=== PATIENT | female | born 1945 | race Caucasian/White ===

== ENCOUNTER 2022-05-23 22:48 | Emergency (ER) | payer MEDICARE ==
[~2022-05-23] VITALS: Ht 152.4 cm; Wt 114.0 kg
--- NOTE | 2022-05-23 23:00 | ED General ---
General Stated Complaint: CONSTIPATION History of Present Illness Date Seen by Provider: May 23, 2022 Time Seen by Provider: 23:00 Initial Comments 77-year-old female with PMH of lymphedema/A. fib/DM2, is here with complaints of constipation for the past 1 week. Patient had a large bowel movement today morning but patient stating that it is hard to stool. Patient takes hydrocodone every day for pain. Denies abdominal pain, diarrhea, nausea and vomiting, chest pain, fever and chills. Patient is able to eat all her meals without any difficulty. Allergies and Home Medications Allergies Coded Allergies: hydrocodone (Unverified Allergy, Unknown, 05/23/22) Influenza Virus Vaccines (Unverified Adverse Reaction, Unknown, 05/23/22) Penicillins (Unverified Adverse Reaction, Unknown, 05/23/22) Sulfa (Sulfonamide Antibiotics) (Unverified Adverse Reaction, Unknown, 05/23/22) cefdinir (Unverified Adverse Reaction, Unknown, 05/23/22) codeine (Unverified Adverse Reaction, Unknown, 05/23/22) doxycycline (Unverified Adverse Reaction, Unknown, 05/23/22) erythromycin base (Unverified Adverse Reaction, Unknown, 05/23/22) levofloxacin (Unverified Adverse Reaction, Unknown, 05/23/22) tramadol (Unverified Adverse Reaction, Unknown, 05/23/22) Uncoded Allergies: HMG-COA Reductase Inhibitors (Adverse Reaction, Unknown, 05/24/22) Listed from [facility] of [facility] Patient Home Medication List Home Medication List Reviewed: Yes Review of Systems Review of Systems Constitutional: no symptoms reported EENTM: no symptoms reported Respiratory: no symptoms reported Cardiovascular: no symptoms reported Gastrointestinal: constipation Genitourinary: no symptoms reported Musculoskeletal: no symptoms reported Skin: no symptoms reported Psychiatric/Neurological: No Symptoms Reported Hematologic/Lymphatic: No Symptoms Reported Immunological/Allergic: no symptoms reported Physical Exam Vital Signs Capillary Refill : Height, Weight, BMI Height: '" Weight: lbs. oz. kg; BMI Method: General Appearance: No Apparent Distress, WD/WN HEENT: PERRL/EOMI Neck: Full Range of Motion Respiratory: Lungs Clear Cardiovascular: Regular Rate, Rhythm Gastrointestinal: Normal Bowel Sounds, No Organomegaly, No Pulsatile Mass, Non Tender, Soft Neurologic/Psychiatric: Alert, Oriented x3 Progress/Results/Core Measures Suspected Sepsis SIRS Temperature: Pulse: Respiratory Rate: Blood Pressure / Mean: Results/Orders My Orders Orders - HERMAN MEYER MD Senna S Tablet (Senokot S Tablet) (05/24/22 00:00) Docusate Sodium Capsule (Colace Capsule) (05/24/22 00:00) Lactulose Syrup (Pour Bottle) (Cephulac (05/24/22 00:00) Na Phos/Na Biphos Enema (Fleet Enema Nicholas (05/24/22 00:00) Vital Signs/I&O Capillary Refill : Progress Note : Progress Note 1. CONSTIPATION: - Pt has soft abdomen with active bowel sounds, stable vitals, and absence of abdominal pain in the ER. High unlikelihood for obstruction - Pt had another large bowel movement while in ER - Fleet enema dispensed to pt from ER - Prescriptions for colace and senna - Advised to stop hydrocodone or any narcotics on a daily basis and replace with Tylenol instead. - Follow up with PCP within 3 to 7 days - Advised adequate water intake -The patient was seen in the ED, and treated appropriately to presentation at a specific point in time. Patient is informed that there is a possibility that disease and illness can evolve and change in acuity rapidly or slowly after patient is discharged from the ER. Precautionary advice given to the patient for immediate return to ER if symptoms worsen or do not resolve, and to seek emergency care sooner rather than later. Pt also advised on the importance of PCP follow up and compliance with management and follow up plan with PCP and/or specialist, as this is part of the management plan. Pt verbally expressed understanding. Departure Impression Primary Impression: Constipation Qualified Codes: K59.03 - Drug induced constipation Disposition: HOME, SELF-CARE Condition: Improved Departure-Patient Inst. Referrals: LEDA LAMBERT APRN (PCP/Family) Primary Care Physician Patient Instructions: Constipation in Adults Add. Discharge Instructions: - Fleet enema dispensed to pt from ER - Prescriptions for colace and senna - Advised to stop hydrocodone or any narcotics on a daily basis and replace with Tylenol instead. - Follow up with PCP within 3 to 7 days - Advised adequate water intake Scripts Sennosides/Docusate Sodium (Colace 2-in-1 Tablet) 8.6 Mg-50 Mg Tablet 1 EACH PO BID for 5 Days, #10 TAB Prov: HERMAN MEYER MD 05/24/22 HERMAN MEYER MD May 23, 2022 23:00
[2022-05-24] MEDS ORDERED: FLEET ENEMA ADULT 1 EA BTL PR ONE
[2022-05-24] MEDS ORDERED: LACTULOSE 10 GM/15 ML 30 ML POUR BOTTLE FOR ENEMA PR ONE
[2022-05-24] MEDS ORDERED: SENNA W/DOCUSATE (SENOKOT S) TABLET PO ONE
[2022-05-24] MEDS ORDERED: DOCUSATE SODIUM 100 MG (COLACE) CAP PO ONE
[2022-05-24] MEDS ORDERED: SENN-181 PO (00:25)
[2022-05-24 00:40] VITALS: BP 149/71
== END 2022-05-24 00:40 | disposition home or self-care (01) ==
LOC: EDUNIT# 22:48 → ER FS 22:50
DX: K59.00 Constipation, unspecified (principal); Z28.310 Unvaccinated for COVID-19
CPT/HCPCS: 99281

== ENCOUNTER → 2022-12-03 | Outpatient (CLI) | payer MEDICARE ==
[~2022-12-03] MED LIST: SENN-181 PO
--- NOTE | 2022-12-03 17:38 | Diagnostic Imaging Report ---
EXAMINATION: Right foot 3 views HISTORY: Foot pain COMPARISON: None available. FINDINGS: There are extensive vascular calcifications throughout the right foot. 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 There is diffuse soft tissue swelling. There is moderate mid foot osteoarthritis. No acute fracture is seen. IMPRESSION: 1. Diffuse soft tissue swelling and vascular calcifications. No acute fracture is seen. Dictated by: Dictated on workstation # [id number]
--- NOTE | 2022-12-03 17:39 | Diagnostic Imaging Report ---
EXAMINATION: Abdomen 1 view HISTORY: Abdominal pain COMPARISON: None available. FINDINGS: No dilated bowel or free air. Study quality is diminished due to positioning and body habitus. IMPRESSION: 1. Normal bowel gas pattern. Dictated by: Dictated on workstation # [id number]
== END ==
LOC: RAD FS 14:50
PROVIDERS: ATTEND Nurse Practitioner Family
DX: R10.84 Generalized abdominal pain (principal); M79.674 Pain in right toe(s); M79.89 Other specified soft tissue disorders
CPT/HCPCS: 73630; 74018

== ENCOUNTER 2023-02-24 10:29 | Inpatient (IN) | payer MEDICARE ==
[~2023-02-24] VITALS: Ht 152.4 cm; Wt 126.8 kg
[2023-02-24] MEDS ORDERED: NS IV 1000 ML 1,000 ML IV STA ×3 (10:49→12:49)
[2023-02-24 10:55] LABS: BILIRUBIN,URINE NEGATIVE (NEGATIVE); CLARITY,URINE CLEAR; GLUCOSE, URINE (UA) TRACE (NEGATIVE); KETONES,URINE NEGATIVE (NEGATIVE); LEUKOCYTE ESTERASE ,URINE NEGATIVE (NEGATIVE); NITRITE,URINE NEGATIVE (NEGATIVE); PROTEIN,URINE 2+ (NEGATIVE)
[2023-02-24 10:56] LABS: BASOPHILS # (AUTO) 0.1 10^3/uL (0.0-0.1); BASOPHILS % (AUTO) 0 % (0-10); EOSINOPHILS # (AUTO) 0.2 10^3/uL (0.0-0.3); EOSINOPHILS % (AUTO) 1 % (0-10); HEMATOCRIT 41 % (35-52); HEMOGLOBIN 12.6 g/dL (11.5-16.0); LYMPHOCYTES # (AUTO) 0.7 10^3/uL (1.0-4.0); LYMPHOCYTES % (AUTO) 4 % (12-44); MEAN CORPUSCULAR HEMOGLOBIN 29 pg (25-34); MEAN CORPUSCULAR HGB CONC 31 g/dL (32-36); MEAN CORPUSCULAR VOLUME 92 fL (80-99); MEAN PLATELET VOLUME 9.6 fL (9.0-12.2); MONOCYTES # (AUTO) 0.8 10^3/uL (0.0-1.0); MONOCYTES % (AUTO) 4 % (0-12); NEUTROPHILS # (AUTO) 17.6 10^3/uL (1.8-7.8); NEUTROPHILS % (AUTO) 91 % (42-75); PLATELET COUNT 325 10^3/uL (130-400); WHITE BLOOD COUNT 19.5 10^3/uL (4.3-11.0)
[2023-02-24] MEDS ORDERED: ACETAMINOPHEN 500 MG TAB (TYLENOL) PO STA (11:03)
[2023-02-24 11:12] LABS: COLOR,URINE DARK YELLOW
[2023-02-24 11:13] LABS: BACTERIA,URINE NEGATIVE /HPF; HYALINE CASTS, URINE RARE /LPF; WBC,URINE RARE /HPF
--- NOTE | 2023-02-24 11:20 | ED General ---
General Chief Complaint: Abdominal/GI Problems Stated Complaint: ABD/LEG PN; CELLULITIS Nursing Triage Note: PT TO ROOM FS05 [facility]IA [facility] FROM [facility] WITH C/O LOWER ABD PAIN AND BILAT LEG PAIN. Source of Information: Patient, EMS, Shelter Records, Old Records Exam Limitations: Other (altered mental status and slow to respond to questions) History of Present Illness Date Seen by Provider: Feb 24, 2023 Time Seen by Provider: 10:30 Initial Comments 78-year-old female presenting by EMS from [facility] with complaints of low abdominal pain and low oxygen. Per the [facility] her oxygen was 50%. EMS reports that on arrival they had her on 1 L/min and her oxygen saturation was 98%. She is vague in answering questions and complaints of pain to the suprapubic area but also in her legs. She is sitting on the cot with her eyes closed and is slow to answer questions and respond. Her temperature was 100 F on arrival to the ED. She is also in atrial fibrillation which is chronic for her. EMS reports that patient recently was on an antibiotic for UTI. She has history of chronic recurrent cellulitis in bilateral lower extremities. Unknown how long her symptoms or complaints have been going on for her this morning as the patient is not able to answer and DC did not call report. Associated Systoms: No Chest Pain, No Cough, No Diaphoresis; Fever/Chills, Malaise; No Nausea/Vomiting; Shortness of Air, Weakness Allergies and Home Medications Allergies Coded Allergies: hydrocodone (Unverified Allergy, Unknown, 05/23/22) Influenza Virus Vaccines (Unverified Adverse Reaction, Unknown, 05/23/22) Penicillins (Unverified Adverse Reaction, Unknown, 05/23/22) Sulfa (Sulfonamide Antibiotics) (Unverified Adverse Reaction, Unknown, 05/23/22) cefdinir (Unverified Adverse Reaction, Unknown, 05/23/22) codeine (Unverified Adverse Reaction, Unknown, 05/23/22) doxycycline (Unverified Adverse Reaction, Unknown, 05/23/22) erythromycin base (Unverified Adverse Reaction, Unknown, 05/23/22) levofloxacin (Unverified Adverse Reaction, Unknown, 05/23/22) tramadol (Unverified Adverse Reaction, Unknown, 05/23/22) Uncoded Allergies: HMG-COA Reductase Inhibitors (Adverse Reaction, Unknown, 05/24/22) Listed from Assisted Living records of [facility] Patient Home Medication List Home Medication List Reviewed: Yes Sennosides/Docusate Sodium (Colace 2-in-1 Tablet) 8.6 Mg-50 Mg Tablet, 1 EACH PO BID Prescribed by: HERMAN MEYER MD on 05/24/22 0025 Review of Systems Review of Systems Constitutional: see HPI, chills, fever EENTM: no symptoms reported Respiratory: short of breath Cardiovascular: edema, palpitations Gastrointestinal: see HPI Genitourinary: frequency Musculoskeletal: see HPI Skin: change in color (erythema to bilateral lower extremities) Psychiatric/Neurological: See HPI Past Ffmisbb-Efjdpt-Rjbfdu Hx Patient Social History Tobacco Use?: No Smoking Status: Never a Smoker Smokeless Tobacco Frequency: Never a User Use of E-Cig and/or Vaping dev: No Use of E-Cig and/or Vaping Castillo: Never a User Substance use?: No Alcohol Use?: No Pt feels they are or have been: No Immunizations Up To Date First/Initial COVID19 Vaccinat: Unvaccinated Past Medical History Surgery/Hospitalization HX: Lymphedema bilat LE, cellulitis bilat LE, DM Type II, Diabetic foot ulcer, Morbid Obesity BMI >50, Atrial Fibrillation, Benign Paroxysmal Vertigo, Essential HTN, Hyperlipedemia, Lumbar and Cervical radiculopathy, Fatty Liver, Chronic pain, Hysterectomy, Tonsillectomy, Cervical neck fusion, Stent for left arm blood circulation, General weakness/debility Physical Exam Vital Signs Vital Signs - First Documented 02/24/23 10:30 Temp 37.8 Pulse 122 Resp 20 B/P (MAP) 143/90 (107) O2 Delivery Room Air Capillary Refill : Less Than 3 Seconds Height, Weight, BMI Height: '" Weight: lbs. oz. kg; 48.00 BMI Method: General Appearance: Mild Distress, Obese HEENT: No Moist Mucous Membranes (slightly dry mucus membranes) Neck: Full Range of Motion, Normal Inspection, Non Tender, Supple Respiratory: Chest Non Tender, No Accessory Muscle Use, No Respiratory Distress, Decreased Breath Sounds Cardiovascular: Normal Peripheral Pulses, Irregularly Irregular, Tachycardia Gastrointestinal: Normal Bowel Sounds, No Pulsatile Mass, Non Tender, Soft Back: No CVA Tenderness Extremity: Normal Capillary Refill, Pedal Edema (Bilateral lower extremity edema 2 + pitting edema bilateral) Neurologic/Psychiatric: Alert, Disoriented (oriented to self only) Skin: Warm/Dry Focused Exam Sepsis Stage: Sepsis Possible Source: Skin/Soft Tissue Lactate Level 02/24/23 10:36: Lactic Acid Level 2.54*H 02/24/23 12:55: Lactic Acid Level 2.77*H Time of Focused Exam: 12:40 Respiratory: Chest Non Tender, Lungs Clear, No Accessory Muscle Use, No Respiratory Distress, Decreased Breath Sounds Cardiovascular: Normal Peripheral Pulses, Irregularly Irregular, Tachycardia Capillary Refill: Less Than 3 Seconds Skin: other (erythema to lower abdominal wall and bilateral lower extremities) Lactic Acid Level Laboratory Tests Test 02/24/23 10:36 02/24/23 12:55 Lactic Acid Level 2.54 MMOL/L (0.50-2.00) *H 2.77 MMOL/L (0.50-2.00) *H Within 3hrs of presentation: Admin fluids, Admin ABX, Blood cultures prior to ABX's, Focus exam, Lactate level Progress/Results/Core Measures Suspected Sepsis SIRS Temperature: Pulse: 122 Respiratory Rate: 20 Laboratory Tests 02/24/23 10:36: White Blood Count 19.5H Blood Pressure 143 /90 Mean: 107 02/24/23 10:36: Lactic Acid Level 2.54*H 02/24/23 12:55: Lactic Acid Level 2.77*H Laboratory Tests 02/24/23 10:36: Creatinine 0.90, Platelet Count 325, Total Bilirubin 1.3H Results/Orders Lab Results Laboratory Tests Test 02/24/23 10:36 02/24/23 10:46 02/24/23 12:55 Range/Units White Blood Count 19.5 H 4.3-11.0 10^3/uL Red Blood Count 4.42 3.80-5.11 10^6/uL Hemoglobin 12.6 11.5-16.0 g/dL Hematocrit 41 35-52 % Mean Corpuscular Volume 92 80-99 fL Mean Corpuscular Hemoglobin 29 25-34 pg Mean Corpuscular Hemoglobin Concent 31 L 32-36 g/dL Red Cell Distribution Width 17.7 H 10.0-14.5 % Platelet Count 325 130-400 10^3/uL Mean Platelet Volume 9.6 9.0-12.2 fL Immature Granulocyte % (Auto) 1 % Neutrophils (%) (Auto) 91 H 42-75 % Lymphocytes (%) (Auto) 4 L 12-44 % Monocytes (%) (Auto) 4 0-12 % Eosinophils (%) (Auto) 1 0-10 % Basophils (%) (Auto) 0 0-10 % Neutrophils # (Auto) 17.6 H 1.8-7.8 10^3/uL Lymphocytes # (Auto) 0.7 L 1.0-4.0 10^3/uL Monocytes # (Auto) 0.8 0.0-1.0 10^3/uL Eosinophils # (Auto) 0.2 0.0-0.3 10^3/uL Basophils # (Auto) 0.1 0.0-0.1 10^3/uL Immature Granulocyte # (Auto) 0.1 0.0-0.1 10^3/uL Neutrophils % (Manual) 79 % Lymphocytes % (Manual) 3 % Monocytes % (Manual) 4 % Eosinophils % (Manual) 0 % Basophils % (Manual) 1 % Band Neutrophils 13 % Platelet Estimate NORMAL Stomatocytes SLIGHT Sodium Level 140 135-145 MMOL/L Potassium Level 3.9 3.6-5.0 MMOL/L Chloride Level 102 98-107 MMOL/L Carbon Dioxide Level 27 21-32 MMOL/L Anion Gap 11 5-14 MMOL/L Blood Urea Nitrogen 27 H 7-18 MG/DL Creatinine 0.90 0.60-1.30 MG/DL Estimat Glomerular Filtration Rate 65 BUN/Creatinine Ratio 30 Glucose Level 114 H 70-105 MG/DL Lactic Acid Level 2.54 *H 2.77 *H 0.50-2.00 MMOL/L Calcium Level 10.2 H 8.5-10.1 MG/DL Corrected Calcium 10.3 H 8.5-10.1 MG/DL Total Bilirubin 1.3 H 0.1-1.0 MG/DL Aspartate Amino Transf (AST/SGOT) 20 5-34 U/L Alanine Aminotransferase (ALT/SGPT) 5 0-55 U/L Alkaline Phosphatase 159 H 40-136 U/L C-Reactive Protein 1.91 H <0.50 MG/DL Total Protein 8.8 H 6.4-8.2 GM/DL Albumin 3.9 3.2-4.5 GM/DL Urine Color DARK YELLOW Urine Clarity CLEAR Urine pH 6.0 5-9 Urine Specific [place] 1.025 H 1.016-1.022 Urine Protein 2+ H NEGATIVE Urine Glucose (UA) TRACE H NEGATIVE Urine Ketones NEGATIVE NEGATIVE Urine Nitrite NEGATIVE NEGATIVE Urine Bilirubin NEGATIVE NEGATIVE Urine Urobilinogen 2.0 < = 1.0 MG/DL Urine Leukocyte Esterase NEGATIVE NEGATIVE Urine RBC (Auto) TRACE-I H NEGATIVE Urine RBC 2-5 H /HPF Urine WBC RARE /HPF Urine Squamous Epithelial Cells NONE /HPF Urine Crystals NONE /LPF Urine Bacteria NEGATIVE /HPF Urine Casts PRESENT /LPF Urine Hyaline Casts RARE /LPF Urine Mucus SMALL H /LPF Urine Culture Indicated NO My Orders Orders - SALLIE ROSARIO MD Cbc With Automated Diff (02/24/23 10:47) Comprehensive Metabolic Panel (02/24/23 10:47) Blood Culture (02/24/23 10:47) Ua Culture If Indicated (02/24/23 10:47) Chest 1 View Ap/Pa Only (02/24/23 10:47) Ed Iv/Invasive Line Start (02/24/23 10:47) Crp Fs (02/24/23 10:47) Lactic Acid Analyzer (02/24/23 10:47) Straight Cath For Spec.-Adult (02/24/23 10:47) Ct Abdomen/Pelvis W (02/24/23 10:47) Ct Head Wo (02/24/23 10:47) Ns Iv 1000 Ml (Sodium Chloride 0.9%) (02/24/23 10:49) Ekg Tracing (02/24/23 10:49) Monitor-Rhythm Ecg Trace Only (02/24/23 10:49) Ns Iv 1000 Ml (Sodium Chloride 0.9%) (02/24/23 11:03) Acetaminophen Tablet (Tylenol Tablet) (02/24/23 11:03) Manual Differential (02/24/23 10:36) Iohexol Injection (Omnipaque 350 Mg/Ml 1 (02/24/23 11:30) Received Contrast (Hold Metformin- Contr (02/24/23 11:30) Ns (Ivpb) (Sodium Chloride 0.9% Ivpb Bag (02/24/23 11:30) Code/Resuscitation (02/24/23 11:54) Meropenem (Merrem 1000 Mg) (02/24/23 12:13) Ketorolac Injection (Toradol Injection) (02/24/23 12:13) Meropenem (Merrem 500 Mg) (02/24/23 12:19) Ns (Ivpb) (Sodium Chloride 0.9% Ivpb Bag (02/24/23 12:20) Lorazepam Injection (Ativan Injection) (02/24/23 12:29) Fentanyl Inj (Sublimaze Injection) (02/24/23 12:36) Vancomycin Injection (Vancomycin Injecti (02/24/23 12:48) Ed Admission (Communication) (02/24/23 12:48) Ns Iv 1000 Ml (Sodium Chloride 0.9%) (02/24/23 12:49) Fentanyl Inj (Sublimaze Injection) (02/24/23 13:31) Medications Given in ED Current Medications Medications Dose Ordered Sig/Yvette Route Start Time Stop Time Status Last Admin Dose Admin Iohexol 100 ml ONCE ONCE IV 02/24/23 11:30 02/24/23 11:32 DC 02/24/23 12:00 80 ML Meropenem 500 mg STK-MED ONCE IV 02/24/23 12:19 02/24/23 12:21 DC 02/24/23 12:23 1,000 MG Sodium Chloride 100 ml ONCE ONCE IV 02/24/23 11:30 02/24/23 11:32 DC 02/24/23 12:00 100 ML Sodium Chloride 100 ml @ ud STK-MED ONCE .ROUTE 02/24/23 12:20 02/24/23 12:23 DC 02/24/23 12:24 200 MLS/HR Vital Signs/I&O 02/24/23 02/24/23 10:30 11:10 Temp 37.8 38.4 Pulse 122 Resp 20 B/P (MAP) 143/90 (107) O2 Delivery Room Air Capillary Refill : Less Than 3 Seconds Blood Pressure Mean: 107 Progress Note #1: Progress Note Potential diagnosis of cellulitis, sepsis, delirium, urinary tract infection, pyelonephritis, bowel obstruction, constipation, pneumonia, pancreatitis, diverticulitis, colitis. Obtain basic labs with complete blood count, comprehensive metabolic profile, blood cultures, lactic acid, urinalysis by straight cath. Obtain CT scan of the head without contrast to look for signs of acute intracranial process to account for her mental status. CT scan of the abdomen and pelvis with IV contrast to look for signs of acute pathology in the abdomen to account for her complaints of pain. Chest x-ray to look for signs of pneumonia or infiltrate. Electrocardiogram with her having atrial fibrillation with heart rate fluctuating from 100 to 115 bpm. Administer normal saline 1 L IV fluid bolus for hydration. Acetaminophen 1 g p.o. for her temperature of 100 F. Progress Note #2: Time: 12:21 Progress Note Patient was crying out for help but is unable to be specific about what she needs help with. She is complaining of general pain. Will administer Toradol 15 mg IV to try and help with pain. Her labs that showed a high white blood cell count of 19.5 thousand with 79% neutrophils 13% bands. Hemoglobin was stable at 12.6. She had elevated lactic acid of 2.54 and had been called back at 1125 by lab. I ordered a dose of cefepime 1 g IV for possible cellulitis and her elevated white count with elevated lactic acid. Her comprehensive metabolic profile did not show any acute significant electrolyte abnormality but she did have mild elevation of her BUN to 27 and her creatinine was okay at 0.9. Total bilirubin was slightly elevated to 1.3. CRP elevated to 1.91. Her urinalysis had elevated specific gravity for some dehydration with 1.025 specific gravity. She had 2+ proteins and 2-5 red blood cells but was negative for bacteria, nitrites, leukocyte esterase. On review of her CT scan of the head they did not see any acute process when read by the radiologist. Her 1 view chest x-ray had shown some pulmonary edema but no definite infiltrate. Her CT scan of the abdomen and pelvis with IV contrast had shown some bibasilar opacities concerning for possible infection. She did not have any signs of obstruction or infection and inflammation of the colon or internal organs. It did look like she had some diffuse stranding in the subcutaneous fat of her lower abdomen for possible cellulitis. We will check with the hospitalist for [facility], Dr. Paz about admission for sepsis with cellulitis and delirium. Progress Note #3: Time: 12:35 Progress Note Patient was continuing to cry out intermittently for help. From review of her medications from [facility] she does take hydrocodone for chronic pain. We will administer fentanyl 25 mcg IV along with Ativan 0.5 mg IV x1 to try and help with her agitation and crying out. Progress Note #4: Time: 12:44 Progress Note Discussed with [facility] hospitalist, Dr. Paz, about the patient and her presentation. With her vital signs stable with blood pressure 124/61 and having atrial fibrillation with heart rate of 100-1 15 with maintaining oxygen saturation in the mid 90s on room air. She does have an elevated white blood cell count for infection with bandemia and a left shift as well as slight elevation of her lactic acid to 2.54. In addition to the dose of cefepime that had been administered will give vancomycin 1 g IV for broader coverage of antibiotics. Admit to [facility] with telemetry and continue with fluids and antibiotics. Progress Note #5: Time: 13:23 Progress Note Lab called to report patient's repeat lactic acid had increased from 2.54 to 2.77. She is getting additional IVF and already had Cefepime 1 gm and now getting Vancomycin 1 gm IV. Continue with IVF after the 2nd Liter bolus infuses. Her blood pressure has remained stable 115-125 systolic. heart rate continues to be atrial fibrillation with heart rate fluctuating from 90 up to 120. confirms the patient is sleepy all the time and not very interactive. She is a little worse right now with what is going on for her. ECG Initial ECG Impression Date: Feb 24, 2023 Initial ECG Impression Time: 10:41 Initial ECG Rate: 100 Initial ECG Rhythm: A Fib/Flutter Initial ECG Comparisson: No Previous ECG Available Comment My personal interpretation and review the electrocardiogram shows atrial fibrillation with rapid ventricular response of 100 bpm. Low QRS voltage in precordial leads. No acute ST elevation. QT interval 342 ms with a QTc interval 399 ms. There is no prior tracing for comparison. Diagnostic Imaging Diagonstic Imaging: Xray Plain Films/CT/US/NM/MRI: chest Reviewed: Reviewed by Me Diagonstic Imaging: CT Plain Films/CT/US/NM/MRI: head Comments [facility] [place] [place] NAME: [facility] REC#: [id number] PT STATUS: REG ER : 1945 PHYSICIAN: SALLIE ROSARIO MD ADMIT DATE: 02/24/23/ER FS Draft Date of Exam:02/24/23 CT HEAD WO INDICATION: Altered mental status TECHNIQUE: Multiple contiguous axial images were obtained through the brain without the use of intravenous contrast. Auto Exposure Controls were utilized during the CT exam to meet ALARA standards for radiation dose reduction. There is no prior CT for comparison. Study was limited by motion and was repeated multiple times. There is diffuse atrophic change. There are chronic ischemic changes in the deep white matter. 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 There is no acute hemorrhage or subdural or epidural collection. Ventricles are normal in size and position. Calvarial windows show no acute bony abnormality. IMPRESSION: Motion limited study. Atrophy and chronic changes in deep white matter. 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 No definite acute abnormality. Dictated on workstation # [id number] Dict: 02/24/23 1200 Trans: 02/24/23 1206 CVB [id number] Interpreted by: BHARATH WILSON MD Electronically signed by: Reviewed: Reviewed by Me Diagonstic Imaging: CT Plain Films/CT/US/NM/MRI: abdomen, pelvis Comments [facility] [place] [place] NAME: PIETRO NORR[facility] REC#: [id number] PT STATUS: REG ER : 1945 PHYSICIAN: SALLIE ROSARIO MD ADMIT DATE: 02/24/23/ER FS Signed Date of Exam:02/24/23 CT ABDOMEN/PELVIS W PROCEDURE: CT abdomen and pelvis with contrast. TECHNIQUE: Multiple contiguous axial images were obtained through the abdomen and pelvis after administration of intravenous contrast. Auto Exposure Controls were utilized during the CT exam to meet ALARA standards for radiation dose reduction. All CT scans use one or more of the following dose optimizing techniques: automated exposure control, MA and/or KvP adjustment based on patient size and exam type or iterative reconstruction. INDICATION: Abdominal pain, frequent UTI. COMPARISON: None. FINDINGS: Included views of the chest demonstrate cardiomegaly, calcified coronary artery disease, calcifications of the aortic and mitral valve. There are bibasilar airspace opacities and small right pleural effusion The liver, spleen, adrenal glands, and pancreas are normal. Gallstone seen within the gallbladder. Scattered diverticuli within the sigmoid colon without evidence of diverticulitis. Calcified aortoiliac atherosclerosis without aneurysm. No free air, loculated fluid collections, or ascites. Small hiatal hernia. No bowel obstruction. There is diffuse subcutaneous fat stranding along the lower abdominal soft tissues. No apparent drainable fluid collections. The osseous structures demonstrate no lytic or sclerotic bone lesions. Severe multilevel degenerative changes of the lumbar spine with moderate multilevel spinal canal stenosis. IMPRESSION: Diffuse fat stranding throughout the subcutaneous tissue of the lower abdomen may represent cellulitis. Other etiologies cannot be excluded based on imaging alone. No apparent drainable fluid collections. Scattered diverticuli within the sigmoid colon without evidence of diverticulitis. Cholelithiasis. Small hiatal hernia. No bowel obstruction. Calcified coronary artery atherosclerosis and calcifications of the aortic and mitral valve. Bibasilar airspace opacities may represent infection or atelectasis. Small right pleural effusion. Dictated by: Dictated on workstation # [id number] Dict: 02/24/23 1201 Trans: 02/24/23 1205 [facility] [id number] Interpreted by: YRN RAMIREZ DO Electronically signed by: YRN RAMIREZ DO 02/24/23 1205 Reviewed: Reviewed by Me Critical Care Note Critical Care Total Time (minutes) 60 minutes Progress I spent at least 60 minutes of critical care time with the patient. Time excludes separately billable procedures. Time was spent obtaining history from patient, [facility] records, , EMS, ordering tests and reviewing results, ordering interventions and reviewing response, discussion with consultants and discussion with the as the patient was disoriented and delirious, documentation in the chart. Patient was at risk of cardiovascular compromise with sepsis and altered mental status delirium. She required 9 immediate and direct intervention and management to help stabilize her condition and arrange for transfer to higher level of care. Departure Communication (Admissions) Time/Spoke to Admitting Phy: 12:44 Discussed with [facility] hospitalist, Dr. Paz, about the patient and her presentation. With her vital signs stable with blood pressure 124/61 and having atrial fibrillation with heart rate of 100-1 15 with maintaining oxygen saturation in the mid 90s on room air. She does have an elevated white blood cell count for infection with bandemia and a left shift as well as slight elevation of her lactic acid to 2.54. In addition to the dose of cefepime that had been administered will give vancomycin 1 g IV for broader coverage of antibiotics. Admit to [facility] with telemetry and continue with fluids and antibiotics. Impression Primary Impression: Sepsis Qualified Codes: A41.9 - Sepsis, unspecified organism Additional Impressions: Cellulitis of both lower extremities Altered mental status Qualified Codes: R41.0 - Disorientation, unspecified Abdominal wall cellulitis Delirium Disposition: 30 STILL A PATIENT Condition: Stable Admissions Decision to Admit Reason: Admit from ER (General) Decision to Admit/Date: Feb 24, 2023 Time/Decision to Admit Time: 12:44 Departure-Patient Inst. Referrals: LEDA LAMBERT APRN (PCP) Primary Care Physician [facility] (Family) Primary Care Physician SALLIE ROSARIO MD Feb 24, 2023 11:20
[2023-02-24 11:22] LABS: BILIRUBIN,TOTAL 1.3 MG/DL (0.1-1.0); CALCIUM 10.2 MG/DL (8.5-10.1); CREATININE SERUM 0.9 MG/DL (0.60-1.30); POTASSIUM 3.9 MMOL/L (3.6-5.0); TOTAL PROTEIN 8.8 GM/DL (6.4-8.2)
[2023-02-24 11:23] LABS: ALBUMIN 3.9 GM/DL (3.2-4.5)
[2023-02-24] MEDS ORDERED: NS 100 ML (IVPB) BAG IV ONE (11:30)
[2023-02-24] MEDS ORDERED: HOLD METFORMIN - RECEIVED CONTRAST 20 ML VIAL IV SCH (11:30)
[2023-02-24] MEDS ORDERED: IOHEXOL 350 MG/ML 100 ML (OMNIPAQUE 350) VIAL IV ONE (11:30)
[2023-02-24 11:42] LABS: BAND NEUTROPHILS 13 %; BASOPHILS % (MANUAL) 1 %; EOSINOPHILS % (MANUAL) 0 %; LYMPHOCYTES % (MANUAL) 3 %; MONOCYTES % (MANUAL) 4 %; NEUTROPHILS % (MANUAL) 79 %; PLATELET ESTIMATE NORMAL
[2023-02-24 11:43] LABS: STOMATOCYTES SLIGHT
--- NOTE | 2023-02-24 12:06 | Diagnostic Imaging Report ---
PROCEDURE: CT abdomen and pelvis with contrast. TECHNIQUE: Multiple contiguous axial images were obtained through the abdomen and pelvis after administration of intravenous contrast. Auto Exposure Controls were utilized during the CT exam to meet ALARA standards for radiation dose reduction. All CT scans use one or more of the following dose optimizing techniques: automated exposure control, MA and/or KvP adjustment based on patient size and exam type or iterative reconstruction. INDICATION: Abdominal pain, frequent UTI. COMPARISON: None. FINDINGS: Included views of the chest demonstrate cardiomegaly, calcified coronary artery disease, calcifications of the aortic and mitral valve. There are bibasilar airspace opacities and small right pleural effusion The liver, spleen, adrenal glands, and pancreas are normal. Gallstone seen within the gallbladder. Scattered diverticuli within the sigmoid colon without evidence of diverticulitis. Calcified aortoiliac atherosclerosis without aneurysm. No free air, loculated fluid collections, or ascites. Small hiatal hernia. No bowel obstruction. There is diffuse subcutaneous fat stranding along the lower abdominal soft tissues. No apparent drainable fluid collections. The osseous structures demonstrate no lytic or sclerotic bone lesions. Severe multilevel degenerative changes of the lumbar spine with moderate multilevel spinal canal stenosis. IMPRESSION: Diffuse fat stranding throughout the subcutaneous tissue of the lower abdomen may represent cellulitis. Other etiologies cannot be excluded based on imaging alone. No apparent drainable fluid collections. Scattered diverticuli within the sigmoid colon without evidence of diverticulitis. Cholelithiasis. Small hiatal hernia. No bowel obstruction. Calcified coronary artery atherosclerosis and calcifications of the aortic and mitral valve. Bibasilar airspace opacities may represent infection or atelectasis. Small right pleural effusion. Dictated by: Dictated on workstation # [id number]
--- NOTE | 2023-02-24 12:06 | Diagnostic Imaging Report ---
INDICATION: Altered mental status TECHNIQUE: Multiple contiguous axial images were obtained through the brain without the use of intravenous contrast. Auto Exposure Controls were utilized during the CT exam to meet ALARA standards for radiation dose reduction. There is no prior CT for comparison. Study was limited by motion and was repeated multiple times. There is diffuse atrophic change. There are chronic ischemic changes in the deep white matter. 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 There is no acute hemorrhage or subdural or epidural collection. Ventricles are normal in size and position. Calvarial windows show no acute bony abnormality. IMPRESSION: Motion limited study. Atrophy and chronic changes in deep white matter. 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 No definite acute abnormality. Dictated by: Dictated on workstation # [id number]
--- NOTE | 2023-02-24 12:11 | Diagnostic Imaging Report ---
INDICATION: Shortness of air. COMPARISON: None. FINDINGS: Single frontal radiographic view of the chest was obtained and demonstrates mild cardiomegaly and mild prominence of the pulmonary vasculature. Lungs are clear. There is no focal consolidation, large effusion, or pneumothorax. Osseous structures show no acute abnormalities. IMPRESSION: Cardiomegaly with pulmonary vascular congestion. Dictated by: Dictated on workstation # [id number]
[2023-02-24] MEDS ORDERED: KETOROLAC 15 MG/ML VIAL IVP STA (12:13)
[2023-02-24] MEDS ORDERED: MEROPENEM 1,000 MG in NS (IVPB) 100 ML IV STA (12:13)
[2023-02-24] MEDS ORDERED: MEROPENEM 500 MG VIAL (MERREM) IV ONE (12:19)
[2023-02-24] MEDS ORDERED: NS (IVPB) 100 ML ONE (12:20)
[2023-02-24] MEDS ORDERED: LORazepam INJ 2 MG/ML (ATIVAN) VIAL IVP STA (12:29)
[2023-02-24] MEDS ORDERED: fentaNYL INJ 100 MCG/2 ML AMP IVP STA ×2 (12:36→13:31)
[2023-02-24] MEDS ORDERED: VANCOMYCIN INJECTION 1,000 MG in NS (IVPB) 250 ML IV STA (12:48)
[2023-02-24 15:15] VITALS: BP 119/51
[2023-02-24] MEDS ORDERED: VANCOMYCIN INJECTION 0.1 MG in NS (IVPB) 250 ML IV SCH (15:15)
[2023-02-24 15:30] VITALS: BP 128/75
[2023-02-24] MEDS ORDERED: VANCOMYCIN 1 GM/NS 250 ML IVPB IV NR ×2 (15:30)
[2023-02-24 15:45] VITALS: BP 120/59
--- NOTE | 2023-02-24 16:08 | History & Physical ---
HPI History of Present Illness: Pt drowsy and wakes up some to questions but goes back to sleep quickly. at bedside doesn't know a lot of detail either. She is a resident at [facility], and was sent from there. Her states that she has had chronic lower extremity redness and it has spread up to her abdomen. She does not use oxygen at baseline per report. states she uses walker to get to the bathroom, otherwise uses wheelchair for around the last year, has history of stroke in the past and he thinks her right side is worse. Source: patient, family Exam Limitations: clinical condition Date seen by provider: Feb 24, 2023 Time Seen by Provider: 16:40 Attending Physician Nicholas Vázquez MD PCP Admitting Physician: Sabiha Paz MD Attending Physician: Sabiha Paz MD Consult Date of Admission Feb 24, 2023 at 14:45 Home Medications Home Medications Reviewed patient Home Medication Reconciliation performed by pharmacy medication reconciliations domestic technician and/or nursing. Patients Allergies have been reviewed. Allergies Coded Allergies: hydrocodone (Unverified Allergy, Unknown, 05/23/22) Influenza Virus Vaccines (Unverified Adverse Reaction, Unknown, 05/23/22) Penicillins (Unverified Adverse Reaction, Unknown, 05/23/22) Sulfa (Sulfonamide Antibiotics) (Unverified Adverse Reaction, Unknown, 05/23/22) cefdinir (Unverified Adverse Reaction, Unknown, 05/23/22) codeine (Unverified Adverse Reaction, Unknown, 05/23/22) doxycycline (Unverified Adverse Reaction, Unknown, 05/23/22) erythromycin base (Unverified Adverse Reaction, Unknown, 05/23/22) levofloxacin (Unverified Adverse Reaction, Unknown, 05/23/22) tramadol (Unverified Adverse Reaction, Unknown, 05/23/22) Uncoded Allergies: HMG-COA Reductase Inhibitors (Adverse Reaction, Unknown, 05/24/22) Listed from Assisted Living records of [facility]-Social-Family Hx Patient Social History Smoking Status: Never a Smoker Alcohol Use?: No Immunizations Up To Date First/Initial COVID19 Vaccinat: Unvaccinated Past Medical History PMHx: History of stroke HTN HLD DMII Coronary artery disease with history of stenting Atrial fibrillation SurgHx: Coronary artery stenting Hysterectomy Tonsillectomy Family Medical History Significant Family History: Other Conditions/Hx (unable to obtain) Review of Systems ([facility]) Constitutional: No chills, No fever; other (difficult to obtain due to patient clinical status) Gastrointestinal: abdominal pain, nausea; No vomiting Physical Exam-([facility]) Physical Exam Vital Signs VS - Last 72 Hours, by Label 02/24/23 02/24/23 02/24/23 02/24/23 10:30 11:10 14:00 15:15 Temp 37.8 38.4 37.6 37.2 Pulse 122 79 98 Resp 20 16 20 B/P (MAP) 143/90 (107) 141/87 119/51 (73) Pulse Ox 94 94 O2 Delivery Room Air Room Air Nasal Cannula O2 Flow Rate 5.00 02/24/23 02/24/23 02/24/23 15:30 15:30 15:45 Temp 36.2 36.2 36.6 Pulse 103 103 111 Resp 18 18 20 B/P (MAP) 128/75 (92) 128/75 (92) 120/59 (79) Pulse Ox 95 96 O2 Delivery Nasal Cannula Nasal Cannula Nasal Cannula O2 Flow Rate 2.00 2.00 2.00 2.00 Capillary Refill : Less Than 3 Seconds General Appearance: no apparent distress, obese Eyes: Bilateral Eye PERRL Respiratory: lungs clear, normal breath sounds Cardiovascular: no murmur, tachycardia, irregularly irregular Peripheral Pulses: 2+ Dorsalis Pedis (R), 2+ Left Dors-Pedis (L) Gastrointestinal: normal bowel sounds, soft, tenderness (LLQ in area of erythema) Extremities: pedal edema (bilateral nonpitting), other (chronic venous stasis c hanges) Neurologic/Psychiatric: other (drowsy, not answering questions well, able to state name only out of orientation questions, able to move both arms equally, states "I don't think so" when asked if she could lift either leg, unable to do more detailed neuro testing due to difficulty cooperating with exam) Skin: other (erythema of left lower abdomen) Assessment/Plan Assessment/Plan Admission Status: Inpatient Order (span 2 midnights) Reason for Inpatient Admission: Sepsis (1) Sepsis Status: Acute Assessment & Plan: Suspected to be secondary to cellulitis. CXR with possible pulmonary edema no clear infiltrate. UA without evidence of infection. Qualifiers: Qualified Codes: A41.9 - Sepsis, unspecified organism (2) Abdominal wall cellulitis Status: Acute Assessment & Plan: Started on meropenem and vancomycin based on allergies. (3) Altered mental status Status: Acute Assessment & Plan: Suspect secondary to sepsis, will check ABG to rule out hypercapnea. CT head without acute changes. Qualifiers: Qualified Codes: R41.0 - Disorientation, unspecified (4) Atrial fibrillation Status: Chronic Assessment & Plan: Resume home cardizem and anticoagulation (5) Hypertension Status: Chronic Assessment & Plan: Hold ARB due to normal BP and needing to resume Cardizem. (6) Hyperlipidemia Status: Chronic (7) Coronary artery disease Status: Chronic (8) Diabetes Status: Chronic Assessment & Plan: Diabetic diet, sliding scale insulin Qualifiers: Qualified Codes: E11.65 - Type 2 diabetes mellitus with hyperglycemia; Z79.4 - petroleum terminal plant operator (current) use of insulin (9) History of stroke Status: Chronic (10) DVT prophylaxis Status: Acute Assessment & Plan: Home full anticoagulation SABIHA PAZ MD Feb 24, 2023 16:08
[2023-02-24] MEDS ORDERED: DILT180C85 PO (16:18)
[2023-02-24] MEDS ORDERED: ASPI-1238 PO (16:18)
[2023-02-24] MEDS ORDERED: IRBE150T23 PO (16:18)
[2023-02-24] MEDS ORDERED: APIX5TAB PO (16:18)
[2023-02-24] MEDS ORDERED: RT-ALBUINH INH (16:18)
[2023-02-24] MEDS ORDERED: ACHD5005 PO (16:18)
[2023-02-24] MEDS ORDERED: FURO40TA4 PO (16:18)
[2023-02-24] MEDS ORDERED: ACETAMINOPHEN 500 MG TAB (TYLENOL) PO PRN (16:30)
[2023-02-24] MEDS ORDERED: RT-ALBUTEROL SULF 2.5 MG/3 ML PRE-MIX VIAL INH SCH (16:30)
[2023-02-24 17:08] VITALS: BP 118/66
[2023-02-24 17:21] LABS: ABG BASE EXCESS 1.1 MMOL/L (-2.5-2.5); ABG OXYGEN SATURATION 98 % (94-100); ABG PCO2 49 MMHG (35-45); ABG PO2 98 MMHG (79-93); ABG TCO2 27.7 MMOL/L (21.0-31.0)
[2023-02-24 17:43] LABS: ABG PH 7.34 (7.37-7.43); ALLENS TEST YES-POS; INSPIRED O2 2L; VENTILATOR NO
[2023-02-24 17:44] LABS: PATIENT TEMP 37.1
[2023-02-24] MEDS: MEROPENEM 500 MG in NS (IVPB) 100 ML IV SCH ×2 (18:13→23:38)
[2023-02-24] MEDS: FUROSEMIDE 40 MG (LASIX) TAB PO SCH (18:13)
[2023-02-24] MEDS: RT-ALBUTEROL SULF 2.5 MG/3 ML PRE-MIX VIAL INH SCH ×2 (19:00→22:07)
[2023-02-24] MEDS: NYSTATIN CREAM (MYCOSTATIN) 30 GM TUBE TP SCH (19:58)
[2023-02-24] MEDS: APIXABAN 5 MG (ELIQUIS) TABLET PO SCH (19:58)
[2023-02-24 20:00] VITALS: BP 135/69
[2023-02-24] MEDS ORDERED: LORazepam INJ 2 MG/ML (ATIVAN) VIAL ONE (20:12)
[2023-02-24] MEDS ORDERED: LORazepam INJ 2 MG/ML (ATIVAN) VIAL IVP PRN (20:15)
[2023-02-24] MEDS: inSUlin ASPART (NovoLOG) 1 UNIT/0.01 ML (CHARGE PER UNIT) SC SCH (21:42)
[2023-02-25] VITALS (7 sets, daily range): BP systolic 112–134; BP diastolic 56–78
[2023-02-25] MEDS: LORazepam INJ 2 MG/ML (ATIVAN) VIAL IVP PRN ×5 (00:30→23:31)
[2023-02-25] MEDS: RT-ALBUTEROL SULF 2.5 MG/3 ML PRE-MIX VIAL INH SCH ×6 (02:23→22:14)
[2023-02-25] MEDS: FUROSEMIDE 40 MG (LASIX) TAB PO SCH ×2 (05:30→18:23)
[2023-02-25] MEDS: MEROPENEM 500 MG in NS (IVPB) 100 ML IV SCH ×4 (05:31→23:31)
[2023-02-25 05:34] LABS: BASOPHILS # (AUTO) 0.1 10^3/uL (0.0-0.1); BASOPHILS % (AUTO) 0 % (0-10); EOSINOPHILS # (AUTO) 0.1 10^3/uL (0.0-0.3); EOSINOPHILS % (AUTO) 0 % (0-10); HEMATOCRIT 33 % (35-52); HEMOGLOBIN 10.7 g/dL (11.5-16.0); LYMPHOCYTES # (AUTO) 0.7 10^3/uL (1.0-4.0); LYMPHOCYTES % (AUTO) 4 % (12-44); MEAN CORPUSCULAR HEMOGLOBIN 30 pg (25-34); MEAN CORPUSCULAR HGB CONC 32 g/dL (32-36); MEAN CORPUSCULAR VOLUME 92 fL (80-99); MEAN PLATELET VOLUME 10.5 fL (9.0-12.2); MONOCYTES # (AUTO) 0.7 10^3/uL (0.0-1.0); MONOCYTES % (AUTO) 4 % (0-12); NEUTROPHILS # (AUTO) 16.6 10^3/uL (1.8-7.8); NEUTROPHILS % (AUTO) 91 % (42-75); PLATELET COUNT 317 10^3/uL (130-400); WHITE BLOOD COUNT 18.3 10^3/uL (4.3-11.0)
[2023-02-25 06:01] LABS: POTASSIUM 4.4 MMOL/L (3.6-5.0)
[2023-02-25 06:02] LABS: CALCIUM 8.9 MG/DL (8.5-10.1)
[2023-02-25 06:05] LABS: BILIRUBIN,TOTAL 1.5 MG/DL (0.1-1.0)
[2023-02-25] MEDS: inSUlin ASPART (NovoLOG) 1 UNIT/0.01 ML (CHARGE PER UNIT) SC SCH ×4 (06:06→20:41)
[2023-02-25] MEDS: ASPIRIN E.C. 81 MG (ECOTRIN) TAB PO SCH (08:47)
[2023-02-25] MEDS: APIXABAN 5 MG (ELIQUIS) TABLET PO SCH ×2 (08:47→19:50)
[2023-02-25] MEDS: NYSTATIN CREAM (MYCOSTATIN) 30 GM TUBE TP SCH ×3 (08:48→19:50)
[2023-02-25] MEDS ORDERED: VANCOMYCIN 1,750 MG/NS 500 ML IVPB IV SCH ×2 (13:00)
--- NOTE | 2023-02-25 14:26 | Progress Note ---
Subjective Subjective/Events-last exam Seen at 1245. Sitting up in bed, feeding her lunch. She is able to state name and that she is in the hospital, thinks it is [place]. Does not know day or date. Having pain in legs. Focused Exam Lactate Level 02/24/23 10:36: Lactic Acid Level 2.54*H 02/24/23 12:55: Lactic Acid Level 2.77*H 02/24/23 16:45: Lactic Acid Level 1.34 Time of Focused Exam: 12:40 Objective Exam Last Set of Vital Signs Vital Signs Date Time Temp Pulse Resp B/P (MAP) Pulse Ox O2 Delivery O2 Flow Rate FiO2 02/25/23 13:04 95 02/25/23 11:39 36.8 18 117/69 (85) 91 Room Air 02/25/23 11:33 0.00 Capillary Refill : Less Than 3 Seconds I&O Intake and Output 02/25/23 00:00 Intake Total 1250 ml Output Total 0 ml Balance 1250 ml Intake Oral 50 ml IV Total 1200 ml Output Urine Total 0 ml Daily Weight Change No General: Alert, Mild Distress Lungs: Clear to Auscultation, Normal Air Movement Heart: Regular Rate Skin: Other (mild erythema of lower abdominal wall improved from yesterday, bilateral lower extremities with chronic erythematous venous stasis) Neuro: Other (oriented to self and partial location, speech somewhat difficult to understand) Psych/Mental Status: Other (appears easily upset) Results/Procedures Lab Laboratory Tests 02/24/23 16:45: Lactic Acid Level 1.34 02/24/23 17:13: Blood Gas Puncture Site RR, Blood Gas Patient Temperature 37.1, Arterial Blood pH 7.34*L, Arterial Blood Partial Pressure CO2 49H, Arterial Blood Partial Pressure O2 98H, Arterial Blood HCO3 26, Arterial Blood Total CO2 27.7, Arterial Blood Oxygen Saturation 98, Arterial Blood Base Excess 1.1, Fortino Test YES-POS, Blood Gas Ventilator Setting NO, Blood Gas Inspired Oxygen 2L 02/24/23 18:25: Glucometer 163H 02/24/23 22:22: Glucometer 184H 02/25/23 05:08: White Blood Count 18.3H, Red Blood Count 3.63L, Hemoglobin 10.7L, Hematocrit 33L , Mean Corpuscular Volume 92, Mean Corpuscular Hemoglobin 30, Mean Corpuscular Hemoglobin Concent 32, Red Cell Distribution Width 18.3H, Platelet Count 317, Mean Platelet Volume 10.5, Immature Granulocyte % (Auto) 1, Neutrophils (%) (Auto) 91H, Lymphocytes (%) (Auto) 4L, Monocytes (%) (Auto) 4, Eosinophils (%) (Auto) 0, Basophils (%) (Auto) 0, Neutrophils # (Auto) 16.6H, Lymphocytes # (Auto) 0.7L, Monocytes # (Auto) 0.7, Eosinophils # (Auto) 0.1, Basophils # (Auto) 0.1, Immature Granulocyte # (Auto) 0.2H, Sodium Level 138, Potassium Level 4.4, Chloride Level 107, Carbon Dioxide Level 23, Anion Gap 8, Blood Urea Nitrogen 32H, Creatinine 1.00, Estimat Glomerular Filtration Rate 57, BUN/Creatinine Ratio 32, Glucose Level 151H, Calcium Level 8.9, Corrected Calcium 9.7, Total Bilirubin 1.5H, Aspartate Amino Transf (AST/SGOT) 31, Alanine Aminotransferase (ALT/SGPT) 13, Alkaline Phosphatase 110, Total Protein 7.0, Albumin 3.0L 02/25/23 10:34: Glucometer 155H Microbiology 02/24/23 Blood Culture - Preliminary, Resulted Strep, Beta Hemolytic Group A Assessment/Plan Assessment/Plan (1) Sepsis Status: Acute Assessment & Plan: Suspected to be secondary to cellulitis. CXR with possible pulmonary edema no clear infiltrate. UA without evidence of infection. 02/26 blood cultures with gram pos cocci in chains, continue meropenem, d/c vancomycin. Qualifiers: Qualified Codes: A41.9 - Sepsis, unspecified organism (2) Abdominal wall cellulitis Status: Acute Assessment & Plan: Started on meropenem and vancomycin based on allergies. 02/25 clinically appears to be improving (3) Altered mental status Status: Acute Assessment & Plan: Suspect secondary to sepsis, will check ABG to rule out hypercapnea. CT head without acute changes. 02/25 ABG yesterday did show some hypercapnia, but with her agitation could not tolerate bipap, mental status much improved today. Qualifiers: Qualified Codes: R41.0 - Disorientation, unspecified (4) Atrial fibrillation Status: Chronic Assessment & Plan: Resume home cardizem and anticoagulation (5) Hypertension Status: Chronic Assessment & Plan: Hold ARB due to normal BP and needing to resume Cardizem. (6) Hyperlipidemia Status: Chronic (7) Coronary artery disease Status: Chronic (8) Diabetes Status: Chronic Assessment & Plan: Diabetic diet, sliding scale insulin Qualifiers: Qualified Codes: E11.65 - Type 2 diabetes mellitus with hyperglycemia; Z79.4 - terminal gauger supervisor (current) use of insulin (9) History of stroke Status: Chronic (10) DVT prophylaxis Status: Acute Assessment & Plan: Home full anticoagulation SABIHA DAVIES MD Feb 25, 2023 14:26
[2023-02-25] MEDS: HYDROcodone/APAP 5 MG/325 MG (LORTAB) TAB PO PRN (19:50)
[2023-02-26] MEDS: RT-ALBUTEROL SULF 2.5 MG/3 ML PRE-MIX VIAL INH SCH ×6 (03:13→22:15)
[2023-02-26 03:55] VITALS: BP 140/66
[2023-02-26] MEDS: LORazepam INJ 2 MG/ML (ATIVAN) VIAL IVP PRN ×2 (04:32→20:37)
[2023-02-26] MEDS: HYDROcodone/APAP 5 MG/325 MG (LORTAB) TAB PO PRN ×3 (04:33→20:37)
[2023-02-26 06:03] LABS: BASOPHILS # (AUTO) 0.1 10^3/uL (0.0-0.1); BASOPHILS % (AUTO) 1 % (0-10); EOSINOPHILS # (AUTO) 0.5 10^3/uL (0.0-0.3); EOSINOPHILS % (AUTO) 4 % (0-10); HEMATOCRIT 33 % (35-52); HEMOGLOBIN 10.1 g/dL (11.5-16.0); LYMPHOCYTES # (AUTO) 0.8 10^3/uL (1.0-4.0); LYMPHOCYTES % (AUTO) 7 % (12-44); MEAN CORPUSCULAR HEMOGLOBIN 29 pg (25-34); MEAN CORPUSCULAR HGB CONC 30 g/dL (32-36); MEAN CORPUSCULAR VOLUME 94 fL (80-99); MEAN PLATELET VOLUME 10.3 fL (9.0-12.2); MONOCYTES # (AUTO) 0.8 10^3/uL (0.0-1.0); MONOCYTES % (AUTO) 7 % (0-12); NEUTROPHILS # (AUTO) 9.3 10^3/uL (1.8-7.8); NEUTROPHILS % (AUTO) 81 % (42-75); PLATELET COUNT 225 10^3/uL (130-400); WHITE BLOOD COUNT 11.5 10^3/uL (4.3-11.0)
[2023-02-26 06:21] LABS: ALBUMIN 3.1 GM/DL (3.2-4.5)
[2023-02-26 06:22] LABS: POTASSIUM 4.6 MMOL/L (3.6-5.0)
[2023-02-26 06:23] LABS: CALCIUM 8.8 MG/DL (8.5-10.1)
[2023-02-26 06:28] LABS: CREATININE SERUM 1.1 MG/DL (0.60-1.30)
[2023-02-26] MEDS: MEROPENEM 500 MG in NS (IVPB) 100 ML IV SCH ×3 (06:41→17:31)
[2023-02-26] MEDS: inSUlin ASPART (NovoLOG) 1 UNIT/0.01 ML (CHARGE PER UNIT) SC SCH ×4 (06:42→22:27)
[2023-02-26] MEDS: FUROSEMIDE 40 MG (LASIX) TAB PO SCH ×2 (06:42→17:29)
[2023-02-26 07:08] VITALS: BP 124/60
[2023-02-26 07:30] LABS: BILIRUBIN,TOTAL 1.1 MG/DL (0.1-1.0)
[2023-02-26] MEDS: ASPIRIN E.C. 81 MG (ECOTRIN) TAB PO SCH (09:42)
[2023-02-26] MEDS: APIXABAN 5 MG (ELIQUIS) TABLET PO SCH ×2 (09:42→20:37)
[2023-02-26] MEDS: NYSTATIN CREAM (MYCOSTATIN) 30 GM TUBE TP SCH ×3 (09:46→22:27)
[2023-02-26 11:25] VITALS: BP 143/67
[2023-02-26] MEDS ORDERED: HYLAND'S LEG CRAMPS PO (13:33)
[2023-02-26] MEDS ORDERED: INSU100I10 SQ (13:33)
[2023-02-26] MEDS ORDERED: MOME17SP11 NSEACH (13:33)
[2023-02-26] MEDS ORDERED: RED600TA PO (13:33)
[2023-02-26] MEDS ORDERED: CHOL200059 PO (13:33)
[2023-02-26] MEDS ORDERED: POLY17PO6 PO (13:33)
[2023-02-26] MEDS ORDERED: LACT1CAP57 PO (13:33)
[2023-02-26] MEDS ORDERED: GUAI-367 PO (13:33)
[2023-02-26] MEDS ORDERED: CYAN-41 PO (13:33)
[2023-02-26] MEDS ORDERED: INSU100I48 SC (13:33)
[2023-02-26] MEDS ORDERED: LOPE-175 PO (13:33)
[2023-02-26] MEDS ORDERED: ALBU18HF2 INH (13:33)
[2023-02-26] MEDS ORDERED: CALC10009 PO (13:33)
[2023-02-26] MEDS: NS IV 1000 ML 1,000 ML IV SCH (15:57)
[2023-02-26 16:02] VITALS: BP 137/82
--- NOTE | 2023-02-26 18:19 | Progress Note ---
Subjective Subjective/Events-last exam Patient fatigued and sleepy after pain medication. Tolerating PO diet. Denies any pain this AM. Review of Systems General: Fatigue Pulmonary: Dyspnea, Cough Cardiovascular: Edema; No: Chest Pain, Palpitations Gastrointestinal: No: Nausea, Vomiting, Abdominal Pain, Diarrhea, Constipation Neurological: Weakness, Incoordination, Confusion Focused Exam Lactate Level 02/24/23 10:36: Lactic Acid Level 2.54*H 02/24/23 12:55: Lactic Acid Level 2.77*H 02/24/23 16:45: Lactic Acid Level 1.34 Time of Focused Exam: 12:40 Objective Exam Last Set of Vital Signs Vital Signs Date Time Temp Pulse Resp B/P (MAP) Pulse Ox O2 Delivery O2 Flow Rate FiO2 02/26/23 16:02 36.6 83 18 137/82 (100) 98 Nasal Cannula 3.00 Capillary Refill : Less Than 3 Seconds I&O Intake and Output 02/25/23 23:59 Intake Total 700 ml Output Total 750 ml Balance -50 ml Intake Oral 400 ml IV Total 300 ml Output Urine Total 750 ml General: Alert, No Acute Distress Lungs: Normal Air Movement, Other (Diffuse wheezing in all lung [place], normal work of breathing) Heart: Regular Rate, No Murmurs Abdomen: Normal Bowel Sounds, Soft, No Tenderness Extremities: Other (2+ pitting edema) Skin: Other (Bilateral LE erythema R>L) Neuro: Normal Speech Results/Procedures Lab Laboratory Tests 02/25/23 19:16: Glucometer 183H 02/26/23 05:22: White Blood Count 11.5H, Red Blood Count 3.54L, Hemoglobin 10.1L, Hematocrit 33L , Mean Corpuscular Volume 94, Mean Corpuscular Hemoglobin 29, Mean Corpuscular Hemoglobin Concent 30L, Red Cell Distribution Width 17.8H, Platelet Count 225, Mean Platelet Volume 10.3, Immature Granulocyte % (Auto) 1, Neutrophils (%) (Auto) 81H, Lymphocytes (%) (Auto) 7L, Monocytes (%) (Auto) 7, Eosinophils (%) (Auto) 4, Basophils (%) (Auto) 1, Neutrophils # (Auto) 9.3H, Lymphocytes # (Auto) 0.8L, Monocytes # (Auto) 0.8, Eosinophils # (Auto) 0.5H, Basophils # (Auto) 0.1, Immature Granulocyte # (Auto) 0.1, Sodium Level 138, Potassium Level 4.6, Chloride Level 106, Carbon Dioxide Level 21, Anion Gap 11, Blood Urea Nitrogen 40H, Creatinine 1.10, Estimat Glomerular Filtration Rate 51, BUN/Creatinine Ratio 36, Glucose Level 204H, Calcium Level 8.8, Corrected Calcium 9.5, Total Bilirubin 1.1H, Aspartate Amino Transf (AST/SGOT) 26, Alanine Aminotransferase (ALT/SGPT) 14, Alkaline Phosphatase 108, Total Protein 7.0, Albumin 3.1L 02/26/23 11:02: Glucometer 194H 02/26/23 15:30: Glucometer 150H Microbiology 02/24/23 Blood Culture - Preliminary, Resulted Streptococcus pyogenes Grp A Assessment/Plan Assessment/Plan (1) Sepsis Status: Resolved Assessment & Plan: Suspected to be secondary to cellulitis. CXR with possible pulmonary edema no clear infiltrate. UA without evidence of infection. 02/26 blood cultures with gram pos cocci in chains, continue meropenem, d/c vancomycin. Qualifiers: Qualified Codes: A41.9 - Sepsis, unspecified organism (2) Abdominal wall cellulitis Status: Acute Assessment & Plan: Started on meropenem and vancomycin based on allergies. 02/25 clinically appears to be improving (3) Altered mental status Status: Acute Assessment & Plan: Suspect secondary to sepsis, will check ABG to rule out hypercapnea. CT head without acute changes. 02/25 ABG yesterday did show some hypercapnia, but with her agitation could not tolerate bipap, mental status much improved today. 02/26: Continues to be confused, Will monitor sedating medications Qualifiers: Qualified Codes: R41.0 - Disorientation, unspecified (4) Atrial fibrillation Status: Chronic Assessment & Plan: Resume home cardizem and anticoagulation (5) Hypertension Status: Chronic Assessment & Plan: Hold ARB due to normal BP and needing to resume Cardizem. (6) Hyperlipidemia Status: Chronic (7) Coronary artery disease Status: Chronic (8) Diabetes Status: Chronic Assessment & Plan: Diabetic diet, sliding scale insulin Qualifiers: Qualified Codes: E11.65 - Type 2 diabetes mellitus with hyperglycemia; Z79.4 - penitentiary (current) use of insulin (9) History of stroke Status: Chronic (10) DVT prophylaxis Status: Acute Assessment & Plan: Home full anticoagulation JAKE VANCE MD Feb 26, 2023 18:19
[2023-02-26 20:17] VITALS: BP 157/83
[2023-02-26 23:26] VITALS: BP 103/53
[2023-02-27] MEDS: MEROPENEM 500 MG in NS (IVPB) 100 ML IV SCH ×5 (01:27→22:58)
[2023-02-27] MEDS: RT-ALBUTEROL SULF 2.5 MG/3 ML PRE-MIX VIAL INH SCH ×6 (02:30→22:04)
[2023-02-27] MEDS: LORazepam INJ 2 MG/ML (ATIVAN) VIAL IVP PRN ×2 (03:36→22:58)
[2023-02-27 03:37] VITALS: BP 122/61
[2023-02-27] MEDS: HYDROcodone/APAP 5 MG/325 MG (LORTAB) TAB PO PRN ×3 (03:37→22:58)
[2023-02-27] MEDS: FUROSEMIDE 40 MG (LASIX) TAB PO SCH ×2 (05:48→16:35)
[2023-02-27] MEDS: NS IV 1000 ML 1,000 ML IV SCH (05:48)
[2023-02-27 06:02] LABS: BASOPHILS # (AUTO) 0.1 10^3/uL (0.0-0.1); BASOPHILS % (AUTO) 1 % (0-10); EOSINOPHILS # (AUTO) 0.6 10^3/uL (0.0-0.3); EOSINOPHILS % (AUTO) 6 % (0-10); HEMATOCRIT 34 % (35-52); HEMOGLOBIN 10.3 g/dL (11.5-16.0); LYMPHOCYTES # (AUTO) 0.7 10^3/uL (1.0-4.0); LYMPHOCYTES % (AUTO) 8 % (12-44); MEAN CORPUSCULAR HEMOGLOBIN 29 pg (25-34); MEAN CORPUSCULAR HGB CONC 31 g/dL (32-36); MEAN CORPUSCULAR VOLUME 94 fL (80-99); MEAN PLATELET VOLUME 9.9 fL (9.0-12.2); MONOCYTES # (AUTO) 0.6 10^3/uL (0.0-1.0); MONOCYTES % (AUTO) 7 % (0-12); NEUTROPHILS # (AUTO) 7.1 10^3/uL (1.8-7.8); NEUTROPHILS % (AUTO) 78 % (42-75); PLATELET COUNT 256 10^3/uL (130-400); WHITE BLOOD COUNT 9.1 10^3/uL (4.3-11.0)
[2023-02-27 06:05] LABS: POTASSIUM 4.5 MMOL/L (3.6-5.0)
[2023-02-27 06:07] LABS: CALCIUM 8.8 MG/DL (8.5-10.1)
[2023-02-27 06:08] LABS: TOTAL PROTEIN 7.1 GM/DL (6.4-8.2)
[2023-02-27 06:12] LABS: CREATININE SERUM 0.92 MG/DL (0.60-1.30)
[2023-02-27] MEDS: inSUlin ASPART (NovoLOG) 1 UNIT/0.01 ML (CHARGE PER UNIT) SC SCH ×4 (06:14→20:56)
[2023-02-27 07:36] VITALS: BP 131/62
[2023-02-27] MEDS: APIXABAN 5 MG (ELIQUIS) TABLET PO SCH ×2 (09:25→20:56)
[2023-02-27] MEDS: NYSTATIN CREAM (MYCOSTATIN) 30 GM TUBE TP SCH ×3 (09:25→20:57)
[2023-02-27] MEDS: ASPIRIN E.C. 81 MG (ECOTRIN) TAB PO SCH (09:25)
[2023-02-27 11:56] VITALS: BP 134/60
--- NOTE | 2023-02-27 14:13 | Physical Therapy Evaluation ---
PT Evaluation-General Medical Diagnosis Admission Date Feb 24, 2023 at 14:45 Medical Diagnosis: abdominal pain/bilateral LE pain/cellulitis Onset Date: Feb 24, 2023 Therapy Diagnosis Therapy Diagnosis: impaired mobility/generalized weakness Precautions Precautions/Isolations: Fall Prevention, Standard Precautions Referral Physician: Milana Reason for Referral: Evaluation/Treatment Medical History Pertinent Medical History: Atrial Fib, DM, HTN Current History EMS from [place] secondary to SAO2 50%, abdominal pain and bilateral LE pain Reviewed History: Yes Social History Home: [facility] Prior Prior Level of Function SCALE: Activities may be completed with or without assistive devices. 1-Cdwpskmfeq-zfcfhqs completes the activity by him/herself with no assistance from a helper. 5-Set-up or Clean-up Assistance-helper sets up or cleans up; patient completes activity. Minto assists only prior to or following the activity. 4-Supervision or Touching Assistance-helper provides verbal cues and/or touching/steadying and/or contact guard assistance as patient completes activity. Assistance may be provided throughout the activity or intermittently. 3-Partial/Moderate Assistance-helper does LESS THAN HALF the effort. Minto lifts, holds or supports trunk or limbs, but provides less than half the effort. 2-Substantial/Maximal Assistance-helper does MORE THAN HALF the effort. Minto lifts or holds trunk or limbs and provides more than half the effort. 3-Qpggzsaec-cxduks does ALL the effort. Patient does none of the effort to complete the activity. Or, the assistance of 2 or more helpers is required for the patient to complete the activity. If activity was not attempted, code reason: 7-Patient Refused. 9-Not Applicable-not attempted and the patient did not perform the activity b efore the current illness, exacerbation or injury. 10-Not Attempted due to Environmental Limitations-(lack of equipment, weather restraints, etc.). 88-Not Attempted due to Medical Conditions or Safety Concerns. Bed Mobility: 1 Transfers (B,C,W/C): 1 Indoor Mobility (Ambulation): Not Applicalbe Stairs: Not Applicalbe Prior Devices Use: Manual wheelchair PT Evaluation-Current Subjective Patient emotional during session. Spouse reports she has been like this for months and he doesn't know why. Spouse reports patient hasn't ambulated for months as well. Pain Numeric Pain Scale: 10-Worst Possible Pain Location: Soft Tissue Location Body Site: Generalized Comment: FLACC Objective Patient Orientation: Person ROM/Strength ROM Lower Extremities limited bilaterally due to pain and disuse Strength Lower Extremities NT Integumentary/Posture Integumentary refer to nursing notes Bladder Incontinence: Garcia Cath Neuromuscular (Tone, Coordination, Reflexes) diminished with all Sensory Vision: Unable to Assess Hearing: Functional Transfers Roll Left to Right (QC): 1 (x 3) Sit to Lying (QC): 1 (x 2) Lying to Sitting/Side of Bed(Q: 1 (x 2) Gait Does the Patient Walk?: No and Walking Goal NOT indicated Balance Sitting Static: Poor Sitting Dynamic: Poor Assessment/Needs Patient will benefit from skilled PT to address functional strength and mobility to improve current LOF. Patient is currently dependent of 2 with all mobility and is very emotional. Rehab Potential: Guarded PT Imaging Services Director Goals Custodial Goals PT Custodial Goals Time Frame: Mar 15, 2023 Roll Left & Right (QC): 3 Sit to Lying (QC): 3 Lying-Sitting on Side/Bed(QC): 3 Sit to Stand (QC): 2 Chair/Qql-bm-Ogrko Xfer(QC): 2 PT Plan Problem List Problem List: Activity Tolerance, Functional Strength, Balance, Transfer, Bed Mobility, ROM Treatment/Plan Treatment Plan: Continue Plan of Care Treatment Plan: Bed Mobility, Education, Functional Activity Mariya, Functional Strength, Safety, Therapeutic Exercise, Transfers Treatment Duration: Mar 15, 2023 Frequency: 5 times per week Estimated Hrs Per Day: .25 hour per day Time Time In: 1316 Time Out: 1343 DATE: Feb 27, 2023 Total Billed Treatment Time: 27 Total Billed Treatment 1 visit EVModC 10 min FA 17 min KRISTY VIZCAINO PT Feb 27, 2023 14:13
--- NOTE | 2023-02-27 15:01 | Progress Note ---
Subjective Subjective/Events-last exam Patient more alert today. Tolerating PO diet. No BM in the last 24 hrs. States that her legs are hurting her since she has been sitting up. Review of Systems General: Fatigue, Malaise Pulmonary: Dyspnea; No Cough Cardiovascular: Edema (2+ pitting edema); No: Chest Pain, Palpitations Gastrointestinal: No: Nausea, Vomiting Neurological: Weakness, Incoordination, Confusion Focused Exam Lactate Level 02/24/23 16:45: Lactic Acid Level 1.34 Time of Focused Exam: 12:40 Objective Exam Last Set of Vital Signs Vital Signs Date Time Temp Pulse Resp B/P (MAP) Pulse Ox O2 Delivery O2 Flow Rate FiO2 02/27/23 11:56 36.4 82 18 134/60 (84) 97 Room Air 02/27/23 10:55 2.00 Capillary Refill : Less Than 3 Seconds I&O Intake and Output 02/27/23 00:00 Intake Total 1450 ml Output Total 2000 ml Balance -550 ml Intake Oral 1250 ml IV Total 200 ml Output Urine Total 2000 ml General: Alert, Oriented X3, No Acute Distress Lungs: Other (Diffuse wheezing, normal work of breathing) Heart: Regular Rate, No Murmurs Abdomen: Normal Bowel Sounds, Soft Extremities: Other (2+ pitting edema ) Neuro: Normal Speech (whiny) Results/Procedures Lab Laboratory Tests 02/26/23 15:30: Glucometer 150H 02/26/23 20:53: Glucometer 157H 02/27/23 05:43: White Blood Count 9.1, Red Blood Count 3.61L, Hemoglobin 10.3L, Hematocrit 34L, Mean Corpuscular Volume 94, Mean Corpuscular Hemoglobin 29, Mean Corpuscular Hemoglobin Concent 31L, Red Cell Distribution Width 17.2H, Platelet Count 256, Mean Platelet Volume 9.9, Immature Granulocyte % (Auto) 1, Neutrophils (%) (Auto) 78H, Lymphocytes (%) (Auto) 8L, Monocytes (%) (Auto) 7, Eosinophils (%) (Auto) 6, Basophils (%) (Auto) 1, Neutrophils # (Auto) 7.1, Lymphocytes # (Auto) 0.7L, Monocytes # (Auto) 0.6, Eosinophils # (Auto) 0.6H, Basophils # (Auto) 0.1, Immature Granulocyte # (Auto) 0.1, Sodium Level 139, Potassium Level 4.5, Chloride Level 106, Carbon Dioxide Level 24, Anion Gap 9, Blood Urea Nitrogen 39H, Creatinine 0.92, Estimat Glomerular Filtration Rate 63, BUN/Creatinine Ratio 42, Glucose Level 165H, Calcium Level 8.8, Corrected Calcium 9.6, Total Bilirubin 1.0, Aspartate Amino Transf (AST/SGOT) 18, Alanine Aminotransferase (ALT/SGPT) 12, Alkaline Phosphatase 110, Total Protein 7.1, Albumin 3.0L 02/27/23 12:01: Glucometer 172H Microbiology 02/24/23 Blood Culture - Final, Complete Streptococcus pyogenes Grp A Assessment/Plan Assessment/Plan (1) Sepsis Status: Resolved Assessment & Plan: Suspected to be secondary to cellulitis. CXR with possible pulmonary edema no clear infiltrate. UA without evidence of infection. 02/26 blood cultures with gram pos cocci in chains, continue meropenem, d/c vancomycin. Qualifiers: Qualified Codes: A41.9 - Sepsis, unspecified organism (2) Abdominal wall cellulitis Status: Acute Assessment & Plan: Started on meropenem and vancomycin based on allergies. 02/25 clinically appears to be improving 02/27: Improving (3) Altered mental status Status: Acute Assessment & Plan: Suspect secondary to sepsis, will check ABG to rule out hypercapnea. CT head without acute changes. 02/25 ABG yesterday did show some hypercapnia, but with her agitation could not tolerate bipap, mental status much improved today. 02/26: Continues to be confused, Will monitor sedating medications 02/27: Seems to be close to baseline, will plan on d/c back to facility tomorrow Qualifiers: Qualified Codes: R41.0 - Disorientation, unspecified (4) Atrial fibrillation Status: Chronic Assessment & Plan: Resume home cardizem and anticoagulation (5) Hypertension Status: Chronic Assessment & Plan: Hold ARB due to normal BP and needing to resume Cardizem. (6) Hyperlipidemia Status: Chronic (7) Coronary artery disease Status: Chronic (8) Diabetes Status: Chronic Assessment & Plan: Diabetic diet, sliding scale insulin Qualifiers: Qualified Codes: E11.65 - Type 2 diabetes mellitus with hyperglycemia; Z79.4 - group home (current) use of insulin (9) History of stroke Status: Chronic (10) DVT prophylaxis Status: Acute Assessment & Plan: Home full anticoagulation JAKE VANCE MD Feb 27, 2023 15:01
[2023-02-27 15:50] VITALS: BP 151/65
--- NOTE | 2023-02-27 16:25 | Occupational Therapy Eval ---
OT Evaluation-General/PLF Medical Diagnosis Admission Date Feb 24, 2023 at 14:45 Medical Diagnosis: abdominal pain/bilateral LE pain/cellulitis Onset Date: Feb 24, 2023 Therapy Diagnosis Therapy Diagnosis: debility Precautions Precautions/Isolations: Fall Prevention, Standard Precautions Weight Bear Status Patient spouse reports patient has not walked for at least 2 months Referral Physician: Milana Medical History Pertinent Medical History: Atrial Fib, DM, HTN Social History Home: Prison ADL-Prior Level of Function SCALE: Activities may be completed with or without assistive devices. 9-Vlsgxurgug-lzfkoqx completes the activity by him/herself with no assistance from a helper. 5-Set-up or Clean-up Assistance-helper sets up or cleans up; patient completes activity. [place] assists only prior to or following the activity. 4-Supervision or Touching Assistance-helper provides verbal cues and/or touching/steadying and/or contact guard assistance as patient completes activity. Assistance may be provided throughout the activity or intermittently. 3-Partial/Moderate Assistance-helper does LESS THAN HALF the effort. [place] lifts, holds or supports trunk or limbs, but provides less than half the effort. 2-Substantial/Maximal Assistance-helper does MORE THAN HALF the effort. [place] lifts or holds trunk or limbs and provides more than half the effort. 4-Sjztpjbwj-ftydjt does ALL the effort. Patient does none of the effort to complete the activity. Or, the assistance of 2 or more helpers is required for the patient to complete the activity. If activity was not attempted, code reason: 7-Patient Refused. 9-Not Applicable-not attempted and the patient did not perform the activity before the current illness, exacerbation or injury. 10-Not Attempted due to Environmental Limitations-(lack of equipment, weather restraints, etc.). 88-Not Attempted due to Medical Conditions or Safety Concerns. Self Care: Dependent Functional Cognition: Needed Some Help Drive Self: No OT Current Status Subjective Tearful and loudly slurred communication, requires calming to redirect patents to speak clearly, concerned with where he is Pain Comment: C/O Pain does not isolate pain, does not give number to rate Mental Status/Objective Patient Orientation: Person Current Upper Extremity ROM In supine position demonstrated AROM to brush hair, feed self touch arms crossing midline reach BUE into air towards ceiling Upper Extremity Strength does not follow direction to MMT ADL-Treatment Eating (QC): 4 (demonstrated abilty to feed self, requires multiple cue to open eyes and focus on utensil use.) Oral Hygiene (QC): 3 Shower/Bathe Self (QC): 7 Upper Body Dressing (QC): 1 Lower Body Dressing (QC): 1 On/Off Footwear (QC): 1 Toileting Hygiene (QC): 1 Requires MAX of 2 for rolling, dependent bed mobility Education OT Patient Education: Modified ADL techniques, Progress toward Goal/Update tx plan, Purpose of tx/functional activities, Reviewed precautions, Rehab process, Safety issues, Transfer techniques Teaching Recipient: Patient, Family Teaching Methods: Demonstration, Discussion Response to Teaching: Reinforcement Needed OT [employer] Dean Goals [employer] Dean Goals Eating (QC): 5 Oral Hygiene (QC): 5 Additional Goals: 3-ImproveStrength/Mariya 1=Demonstrate adherence to instructed precautions during ADL tasks. 2=Patient will verbalize/demonstrate understanding of assistive devices/modifications for ADL. 3=Patient will improve strength/tolerance for activity to enable patient to perform ADL's. OT Education/Plan Problem List/Assessment Assessment: Decreased Activ Tolerance, Decreased UE Strength, Dependent Transfers, Impaired Bed Mobility, Impaired Cognition, Impaired Coordination, Impaired Funct Balance, Impaired Self-Care Skills, Restricted Funct UE ROM Discharge Recommendations Plan/Recommendations: Continue POC Therapy Discharge Recommendati: Post Acute OT Treatment Plan/Plan of Care Treatment,Training & Education: Yes Patient would benefit from OT for education, treatment and training to promote independence in ADL's, mobility, safety and/or upper extremity function for ADL's. Plan of Care: ADL Retraining, Cognitive Retraining, Concurrent Therapy, Functional Mobility, Group Exercise/Act as Ind, UE Funct Exercise/Act, UE Neuromus Re-Ed/Coord Treatment Duration: Mar 07, 2023 Frequency: 3 times per week (3-5 times per week) Rehab Potential: Guarded Time Start Time: 13:14 Stop Time: 13:43 DATE: Feb 27, 2023 Total Time Billed (hr/min): 27 Billed Treatment Time EVM ADL 27 min BROCK DIAMOND OT Feb 27, 2023 16:25
--- NOTE | 2023-02-27 18:37 | Physician Query-Final Dx ---
NEREYDA VIRGEN 02/27/23 1837: Final Diagnosis Give Final Diagnosis Please give Final Diagnosis The medical record reflects the following clinical evidence: Clinical Indicators: RR 20 on admission has been mostly 16-20, on RA on but quickly started on O2, on O2 as high as 5 L but mostly 2 to 3 L, O2 sats 94 to 98% on 02 (P/F=216), 46% but O2 sat decreased down to 82% on room air (P/F= 219) started back on oxygen at 2 to 3 L, documentation of "unable to lie flat and shortness of air with exertion" on admission Risk Factor(s): sepsis, suspected secondary cellulitis possible pulmonary edema, No Home 02 Treatment: Supplemental 02 up 5L, Respiratory monitoring IV ABX for Sepsis Acute respiratory failure, unsp w hypoxia or hypercapnia, present on admission Other explanation of clinical findings Unable to determine (no explanation for clinical findings) Please clarify and document your clinical opinion in the progress notes and discharge summary including the definitive and/or presumptive diagnosis, (suspected or probable), related to the above clinical findings. Please include clinical findings supporting your diagnosis. Nereyda Virgen, MSN, RN Clinical City Maintenance Manager [phone] [email or web address] JAKE VANCE MD 02/27/231948: Final Diagnosis Give Final Diagnosis Yes ARF with hypoxia present at admission NEREYDA VIRGEN Feb 27, 2023 18:37 JAKE VANCE MD Feb 27, 2023 19:49
--- NOTE | 2023-02-27 18:44 | Physician Query-Final Dx ---
NEREYDA VIRGEN 02/27/23 1844: Final Diagnosis Give Final Diagnosis Please give Final Diagnosis The medical record reflects the following clinical evidence: Clinical Indicators: "Altered mental status...Suspect secondary to sepsis", "02/27: Seems to be close to baseline", GCS on admission 13 has improved to 14 then 15 on 02/27. Risk Factor(s): Sepsis, advanced age, Cellulitis Treatment: CT head, Neuro monitoring IV ABX for sepsis Metabolic encephalopathy, present on admission, resolving Other explanation of clinical findings Unable to determine (no explanation for clinical findings) Please clarify and document your clinical opinion in the progress notes and discharge summary including the definitive and/or presumptive diagnosis, (suspected or probable), related to the above clinical findings. Please include clinical findings supporting your diagnosis. Nereyda Virgen, MSN, RN Clinical Social Work Case Manager [phone] [email or web address] JAKE VANCE MD 02/27/231948: Final Diagnosis Give Final Diagnosis Altered mental status, unsure of cause NEREYDA VIRGEN Feb 27, 2023 18:44 JAKE VANCE MD Feb 27, 2023 19:49
[2023-02-27 19:41] VITALS: BP 146/63
[2023-02-27 23:02] VITALS: BP 134/63
[2023-02-28] MEDS: RT-ALBUTEROL SULF 2.5 MG/3 ML PRE-MIX VIAL INH SCH ×3 (03:17→10:37)
[2023-02-28] MEDS: LORazepam INJ 2 MG/ML (ATIVAN) VIAL IVP PRN (03:50)
[2023-02-28 04:00] VITALS: BP 151/65
[2023-02-28 05:56] LABS: BASOPHILS # (AUTO) 0.1 10^3/uL (0.0-0.1); BASOPHILS % (AUTO) 1 % (0-10); EOSINOPHILS # (AUTO) 0.5 10^3/uL (0.0-0.3); EOSINOPHILS % (AUTO) 7 % (0-10); HEMATOCRIT 34 % (35-52); HEMOGLOBIN 10.5 g/dL (11.5-16.0); LYMPHOCYTES # (AUTO) 0.8 10^3/uL (1.0-4.0); LYMPHOCYTES % (AUTO) 11 % (12-44); MEAN CORPUSCULAR HEMOGLOBIN 29 pg (25-34); MEAN CORPUSCULAR HGB CONC 31 g/dL (32-36); MEAN CORPUSCULAR VOLUME 92 fL (80-99); MEAN PLATELET VOLUME 10.5 fL (9.0-12.2); MONOCYTES # (AUTO) 0.5 10^3/uL (0.0-1.0); MONOCYTES % (AUTO) 7 % (0-12); NEUTROPHILS # (AUTO) 5.2 10^3/uL (1.8-7.8); NEUTROPHILS % (AUTO) 72 % (42-75); PLATELET COUNT 267 10^3/uL (130-400); WHITE BLOOD COUNT 7.2 10^3/uL (4.3-11.0)
[2023-02-28 06:22] LABS: ALBUMIN 3.1 GM/DL (3.2-4.5); CALCIUM 9.1 MG/DL (8.5-10.1); CREATININE SERUM 0.85 MG/DL (0.60-1.30); POTASSIUM 4.4 MMOL/L (3.6-5.0); TOTAL PROTEIN 7.1 GM/DL (6.4-8.2)
[2023-02-28] MEDS: inSUlin ASPART (NovoLOG) 1 UNIT/0.01 ML (CHARGE PER UNIT) SC SCH ×2 (06:59→12:26)
[2023-02-28] MEDS: MEROPENEM 500 MG in NS (IVPB) 100 ML IV SCH (06:59)
[2023-02-28] MEDS: FUROSEMIDE 40 MG (LASIX) TAB PO SCH (06:59)
[2023-02-28] MEDS: HYDROcodone/APAP 5 MG/325 MG (LORTAB) TAB PO PRN ×2 (07:05→12:25)
[2023-02-28 07:48] VITALS: BP 130/72
[2023-02-28] MEDS: NYSTATIN CREAM (MYCOSTATIN) 30 GM TUBE TP SCH (09:08)
[2023-02-28] MEDS: ASPIRIN E.C. 81 MG (ECOTRIN) TAB PO SCH (09:08)
[2023-02-28] MEDS: APIXABAN 5 MG (ELIQUIS) TABLET PO SCH (09:08)
--- NOTE | 2023-02-28 11:11 | Physical Therapy Daily Note ---
PT Daily Note-Current Subjective Pt found laying in bed upon entry /c family present. Agreed to PT. Reports that she has continuous pain in her BLEs. States that pain increases /c movement. Frequently asks for pain medication throughout visit. Pain Section J - Health Conditions 1. Rarely or not at all 2. Occasionally 3. Frequently 4. Almost constantly 8. Unable to answer Pain Effect on Sleep: 10 Pain Interference with Therapy: 10 Pain Interference w/Day-to-Day: 10 Mental Status Patient Orientation: Person Attachments: Garcia Catheter Transfers SCALE: Activities may be completed with or without assistive devices. 8-Rfuiotwydd-janlgjw completes the activity by him/herself with no assistance from a helper. 5-Set-up or Clean-up Assistance-helper sets up or cleans up; patient completes activity. [place] assists only prior to or following the activity. 4-Supervision or Touching Assistance-helper provides verbal cues and/or touchi ng/steadying and/or contact guard assistance as patient completes activity. Assistance may be provided throughout the activity or intermittently. 3-Partial/Moderate Assistance-helper does LESS THAN HALF the effort. [place] lifts, holds or supports trunk or limbs, but provides less than half the effort. 2-Substantial/Maximal Assistance-helper does MORE THAN HALF the effort. [place] lifts or holds trunk or limbs and provides more than half the effort. 4-Dacshiqpo-glvydl does ALL the effort. Patient does none of the effort to complete the activity. Or, the assistance of 2 or more helpers is required for the patient to complete the activity. If activity was not attempted, code reason: 7-Patient Refused. 9-Not Applicable-not attempted and the patient did not perform the activity before the current illness, exacerbation or injury. 10-Not Attempted due to Environmental Limitations-(lack of equipment, weather restraints, etc.). 88-Not Attempted due to Medical Conditions or Safety Concerns. Roll Left & Right (QC): 1 Sit to Lying (QC): 1 Lying to Sitting/Side of Bed(Q: 1 Pt MAX 2 person assist /c all completed transfers. Gait Training Does the Patient Walk?: No and Walking Goal NOT indicated Treatments AAROM Supine Therapeutic Exercises (B): Ankle pumps x 5 SLRs x 5 Hip abd/add x 5 Assessment Current Status: Poor Progress Pt displays poor tolerance /c transfer training and therapeutic exercises. Pt required two person MAX assistance /c all bed mobility. Able to provide minimal sitting assistance while seated on edge of bed. Sits on edge of bed for 30 seconds before laying back down. Displays poor muscle strength and ROM /c completion of therapeutic exercises. Increased pain reported /c all interventions. Continue to progress pt as tolerated per POC to improve strength, endurance, functional ability, and decrease pain. PT Chief Relay Tester Goals [facility] Goals PT [facility] Goals Time Frame: Mar 15, 2023 Roll Left & Right (QC): 3 Sit to Lying (QC): 3 Lying-Sitting on Side/Bed(QC): 3 Sit to Stand (QC): 2 Chair/Pph-qw-Mghav Xfer(QC): 2 PT Plan Treatment/Plan Treatment Plan: Continue Plan of Care Treatment Plan: Bed Mobility, Education, Functional Activity Mariya, Functional Strength, Safety, Therapeutic Exercise, Transfers Treatment Duration: Mar 15, 2023 Frequency: 5 times per week Estimated Hrs Per Day: .25 hour per day Time Time In: 1050 Time Out: 1103 DATE: Feb 28, 2023 Total Billed Treatment Time: 13 Total Billed Treatment 1 visit FA x 1 FLAKITA SHAFER MINER PLACER Feb 28, 2023 11:11
[2023-02-28 11:39] VITALS: BP 175/75
--- NOTE | 2023-02-28 11:52 | Discharge Summary ---
Discharge Summary Hospital Course Hospital Course Date of Admission: Feb 24, 2023 at 14:45 Admission Diagnosis : Family Physician/Provider: Deleted Date of Discharge: 02/28/23 Discharge Diagnosis: Sepsis Abdominal Wall cellulitis LE Cellulitis Altered Mental status Atrial Fibrillation HTN HLD CAD IDDM Labs and Pending Lab Test: Laboratory Tests 02/27/23 12:01: Glucometer 172H 02/27/23 15:28: Glucometer 188H 02/27/23 20:17: Glucometer 180H 02/28/23 05:05: White Blood Count 7.2, Red Blood Count 3.68L, Hemoglobin 10.5L, Hematocrit 34L, Mean Corpuscular Volume 92, Mean Corpuscular Hemoglobin 29, Mean Corpuscular Hemoglobin Concent 31L, Red Cell Distribution Width 16.9H, Platelet Count 267, Mean Platelet Volume 10.5, Immature Granulocyte % (Auto) 1, Neutrophils (%) (Auto) 72, Lymphocytes (%) (Auto) 11L, Monocytes (%) (Auto) 7, Eosinophils (%) (Auto) 7, Basophils (%) (Auto) 1, Neutrophils # (Auto) 5.2, Lymphocytes # (Auto) 0.8L, Monocytes # (Auto) 0.5, Eosinophils # (Auto) 0.5H, Basophils # (Auto) 0.1, Immature Granulocyte # (Auto) 0.1, Sodium Level 140, Potassium Level 4.4, Chloride Level 105, Carbon Dioxide Level 23, Anion Gap 12, Blood Urea Nitrogen 35H, Creatinine 0.85, Estimat Glomerular Filtration Rate 70, BUN/Creatinine Ratio 41, Glucose Level 165H, Calcium Level 9.1, Corrected Calcium 9.8, Total Bilirubin 1.0, Aspartate Amino Transf (AST/SGOT) 18, Alanine Aminotransferase (ALT/SGPT) 14, Alkaline Phosphatase 119, Total Protein 7.1, Albumin 3.1L 02/28/23 11:36: Glucometer 208H Microbiology 02/24/23 Blood Culture - Final, Complete Streptococcus pyogenes Grp A Home Meds Active Reported Tums Ultra (Calcium Carbonate) 400 Mg Calcium (1000 Mg) Tab.chew 1,000 Mg PO UD PRN Mucinex Dm ER 600-30 mg Tablet (Guaifenesin/Dextromethorphan) 600 Mg-30 Mg Tab.er.12h 1 Each PO Q12H PRN Mometasone Furoate 50 Mcg/Actuation [place].pump 1 Sprays NSEACH Q12H PRN Miralax (Polyethylene Glycol 3350) 17 Gram Powd.pack 17 Gm PO Q8H PRN [Zhane's Leg Cramps] 1 Ea PO Q4H PRN MDD T Imodium A-D (Loperamide HCl) 2 Mg Capsule 2 Mg PO Q6H PRN Ventolin Hfa (Albuterol Sulfate) 90 Mcg Hfa.aer.ad 1 Puff INH Q6H PRN Insulin Lispro Kwikpen U-100 (Insulin Lispro) 100 Unit/Ml Insuln.pen 25 Units SC AC Lantus Solostar (Insulin Glargine,Hum.rec.anlog) 100 Unit/Ml (3 Ml) Insuln.pen Unit SQ HS 0-199=20 UNITS 200-500=25 UNITS Vitamin D3 (Cholecalciferol (Vitamin D3)) 50 Mcg (2000 Unit) Tablet 50 Mcg PO DAILY Red Yeast Rice 600 Mg Tablet 600 Mg PO DAILY Probiotic & Acidophilus Cap (Lactobac Cmb #3/Fos/Pantethine) 300MM-250 Capsule 1 Each PO DAILY Vitamin B-12 (Cyanocobalamin (Vitamin B-12)) 1,000 Mcg Tablet 1,000 Mcg PO DAILY Furosemide 40 Mg Tablet 40 Mg PO BID Irbesartan 150 Mg Tablet 150 Mg PO DAILY Hydrocodone-Acetamin 5-325 mg (Hydrocodone/Acetaminophen) 5 Mg-325 Mg Tablet 0.5 Tab PO Q4H PRN Eliquis (Apixaban) 5 Mg Tablet 5 Mg PO BID Diltiazem 24Hr ER (Diltiazem HCl) 180 Mg Cap.er.24h 180 Mg PO DAILY Aspirin EC (Aspirin) 81 Mg Tablet.dr 81 Mg PO DAILY Skilled NF Admit to: Certification (SNF) I certify that SNF services are required to be given on an inpatient basis because of the above named patient's need for chcf care on a continuing basis for the conditions(s) for which he/she was receiving inpatient hospital services prior to his/her transfer to the SNF. Long Term Facility Order: Nursing Services, Gps Field Data Collector-Evaluate & Treat, Physical Therapy-Evaluate & Treat, Wound Care-Eval/Treat (Stop compression stockings as they do not fit patient, Use Maximiliano wraps in the AM and take them off in the evening) Oxygen Delivery Method: Room Air Discharge Diet: ADA Diet Daily Activity as Tolerated: Yes Resuscitation Status: Do Not Resuscitate New & Resume Previous Orders - Maximiliano Wraps to LE bilaterally with light to medium compression Jake Cortés Feb 28, 2023 11:49 Discharge Physical Exam General: Alert, Oriented X3, No Acute Distress Lungs: Clear to Auscultation, Normal Air Movement Heart: Regular Rate, No Murmurs Abdomen: Normal Bowel Sounds, Soft, No Tenderness, No Masses Extremities: Other (Chronic lymphedema with thickened skin and flaky skin) Neuro: Normal Speech JAKE CORTÉS MD Feb 28, 2023 11:52
[2023-02-28] MEDS ORDERED: CLIN-144 PO (11:54)
[2023-02-28] MEDS ORDERED: NYST15CR35 TP (11:54)
[2023-02-28 13:02] VITALS: BP 175/75
== END 2023-02-28 13:00 | DRG 871 ==
LOC: EDUNIT# 10:29 → ER FS 10:31 → 4TH 14:45
PROVIDERS: ADMIT Family Medicine; ATTEND Family Medicine
DX: A41.9 Sepsis, unspecified organism (principal); J96.01 Acute respiratory failure with hypoxia; L03.311 Cellulitis of abdominal wall; I48.20 Chronic atrial fibrillation, unspecified; L03.116 Cellulitis of left lower limb; Z66 Do not resuscitate; L03.115 Cellulitis of right lower limb; I10 Essential (primary) hypertension; E78.5 Hyperlipidemia, unspecified; I25.10 Atherosclerotic heart disease of native coronary artery without angina pectoris; E11.9 Type 2 diabetes mellitus without complications; Z86.73 Personal history of transient ischemic attack (TIA), and cerebral infarction without residual deficits; Z95.5 Presence of coronary angioplasty implant and graft; Z28.310 Unvaccinated for COVID-19
CPT/HCPCS: 36415; 36600; 51701; 70450; 71045; 74177; 80053; 81000; 82805; 82947; 83605; 85007; 85025; 85027; 86141; 87040; 87077; 87186; 93005; 93041; 94640; 94760

== ENCOUNTER 2023-08-02 12:51 | Emergency (ER) | payer MEDICARE ==
[~2023-08-02 12:51] MED LIST changes: +ACHD5005 PO; +ALBU18HF2 INH; +APIX5TAB PO; +ASPI-1238 PO; +CALC10009 PO; +CHOL200059 PO; +CLIN-144 PO; +CYAN-41 PO; +DILT180C85 PO; +FURO40TA4 PO; +GUAI-367 PO; +HYLAND'S LEG CRAMPS PO; +INSU100I10 SQ; +INSU100I64 SC; +IRBE150T23 PO; +LACT1CAP57 PO; +LOPE-175 PO; +MOME17SP11 NSEACH; +NYST15CR35 TP; +POLY17PO6 PO; +RED600TA PO; +RT-ALBUINH INH
--- NOTE | 2023-08-02 12:59 | ED Cough/URI ---
General Chief Complaint: Cough/Cold/Flu Symptoms Stated Complaint: RIB PAIN; COUGH History of Present Illness Date Seen by Provider: Aug 02, 2023 Time Seen by Provider: 12:56 Initial Comments 78-year-old female presents with a cough x 5 days. She reports she has pain in her right ribs when she coughs. Patient has been around all of her caregivers for her been sick with COVID and some with strep. She states that this morning she was tested for COVID and it was negative however [facility] reports that was a couple days ago she was tested and was negative. She refuses any further COVID tested. There is no reports of fevers, nausea, vomiting or diarrhea or diarrhea. She does report she has had a mild sore throat. Allergies and Home Medications Allergies Coded Allergies: hydrocodone (Verified Allergy, Mild, Itching, 02/25/23) Influenza Virus Vaccines (Unverified Adverse Reaction, Unknown, 05/23/22) Penicillins (Unverified Adverse Reaction, Unknown, 05/23/22) Sulfa (Sulfonamide Antibiotics) (Unverified Adverse Reaction, Unknown, 05/23/22) cefdinir (Unverified Adverse Reaction, Unknown, 05/23/22) codeine (Unverified Adverse Reaction, Unknown, 05/23/22) doxycycline (Unverified Adverse Reaction, Unknown, 05/23/22) erythromycin base (Unverified Adverse Reaction, Unknown, 05/23/22) levofloxacin (Unverified Adverse Reaction, Unknown, 05/23/22) tramadol (Unverified Adverse Reaction, Unknown, 05/23/22) Uncoded Allergies: HMG-COA Reductase Inhibitors (Adverse Reaction, Unknown, 05/24/22) Listed from Assisted Living records of [facility] Patient Home Medication List Home Medication List Reviewed: Yes Albuterol Sulfate (Ventolin Hfa) 90 Mcg Hfa.aer.ad, 1 PUFF INH Q6H PRN for SHORTNESS OF BREATH, (Reported) Entered as Reported by: LAKHWINDER REGALADO on 02/26/23 1333 Apixaban (Eliquis) 5 Mg Tablet, 5 MG PO BID, (Reported) Entered as Reported by: SABIHA DAVIES on 02/24/23 1618 Aspirin (Aspirin EC) 81 Mg Tablet.dr, 81 MG PO DAILY, (Reported) Entered as Reported by: SABIHA DAVIES on 02/24/23 1618 Azithromycin (Azithromycin) 250 Mg Tablet, 250 MG PO UD Prescribed by: GIULIA PALOMINO on 08/02/23 1332 Benzonatate (Tessalon Perles) 100 Mg Capsule, 100 MG PO Q6H PRN for COUGH Prescribed by: GIULIA PALOMINO on 08/02/23 1332 Calcium Carbonate (Tums Ultra) 400 Mg Calcium (1000 Mg) Tab.chew, 1,000 MG PO UD PRN for UPSET STOMACH/HEARTBURN, (Reported) Entered as Reported by: LAKHWINDER REGALADO on 02/26/23 1333 Cholecalciferol (Vitamin D3) (Vitamin D3) 50 Mcg (2000 Unit) Tablet, 50 MCG PO DAILY, (Reported) Entered as Reported by: LAKHWINDER REGALADO on 02/26/23 1333 Clindamycin HCl (Clindamycin HCl) 300 Mg Capsule, 300 MG PO BID Prescribed by: JAKE VANCE on 02/28/23 1154 Cyanocobalamin (Vitamin B-12) (Vitamin B-12) 1,000 Mcg Tablet, 1,000 MCG PO DAILY, (Reported) Entered as Reported by: LAKHWINDER REGALADO on 02/26/23 1333 Diltiazem HCl (Diltiazem 24Hr ER) 180 Mg Cap.er.24h, 180 MG PO DAILY, (Reported) Entered as Reported by: SABIHA DAVIES on 02/24/23 1618 Furosemide (Furosemide) 40 Mg Tablet, 40 MG PO BID, (Reported) Entered as Reported by: SABIHA DAVIES on 02/24/23 1618 Guaifenesin/Dextromethorphan (Mucinex Dm ER 600-30 mg Tablet) 600 Mg-30 Mg Tab.er.12h, 1 EACH PO Q12H PRN for COUGH, (Reported) Entered as Reported by: LAKHWINDER REGALADO on 02/26/23 1333 Hydrocodone/Acetaminophen (Hydrocodone-Acetamin 5-325 mg) 5 Mg-325 Mg Tablet, 0.5 TAB PO Q4H PRN for PAIN-MODERATE (5-7), (Reported) Entered as Reported by: SABIHA DAVIES on 02/24/23 1618 Insulin Glargine,Hum.rec.anlog (Lantus Solostar) 100 Unit/Ml (3 Ml) Insuln.pen, UNIT SQ HS, (Reported) Entered as Reported by: LAKHWINDER REGALADO on 02/26/23 133 Insulin Lispro (Insulin Lispro Kwikpen U-100) 100 Unit/Ml Insuln.pen, 25 UNITS SC AC, (Reported) Entered as Reported by: LAKHWINDER REGALADO on 02/26/23 133 Irbesartan (Irbesartan) 150 Mg Tablet, 150 MG PO DAILY, (Reported) Entered as Reported by: SABIHA DAVIES on 02/24/23 1618 Lactobac Cmb #3/Fos/Pantethine (Probiotic & Acidophilus Cap) 300MM-250 Capsule, 1 EACH PO DAILY, (Reported) Entered as Reported by: LAKHWINDER REGALADO on 02/26/23 133 Loperamide HCl (Imodium A-D) 2 Mg Capsule, 2 MG PO Q6H PRN for DIARRHEA, (Reported) Entered as Reported by: LAKHWINDER REGALADO on 02/26/23 133 Mometasone Furoate (Mometasone Furoate) 50 Mcg/Actuation [place].pump, 1 SPRAYS NSEACH Q12H PRN for CONGESTION, (Reported) Entered as Reported by: LAKHWINDER REGALADO on 02/26/23 133 Nystatin (Nystatin) 100,000 Unit/Gram Cream..g., 1 GM TP TID Prescribed by: JAKE VANCE on 02/28/23 1154 Polyethylene Glycol 3350 (Miralax) 17 Gram Powd.pack, 17 GM PO Q8H PRN for CONSTIPATION-2ND LINE, (Reported) Entered as Reported by: LAKHWINDER REGALADO on 02/26/23 133 Red Yeast Rice (Red Yeast Rice) 600 Mg Tablet, 600 MG PO DAILY, (Reported) Entered as Reported by: LAKHWINDER REGALADO on 02/26/23 133 [Zhane's Leg Cramps] , 1 EA PO Q4H PRN for LEG CRAMPS, (Reported) Entered as Reported by: LAKHWINDER REGALADO on 02/26/23 133 Review of Systems Review of Systems Constitutional: No chills, No fever EENTM: throat pain Respiratory: cough; No short of breath Cardiovascular: no symptoms reported Gastrointestinal: no symptoms reported Genitourinary: no symptoms reported Musculoskeletal: no symptoms reported Past Ruaxqiv-Yuemqm-Dfrbak Hx Immunizations Up To Date First/Initial COVID19 Vaccinat: Unvaccinated Past Medical History Surgery/Hospitalization HX: Lymphedema bilat LE, cellulitis bilat LE, DM Type II, Diabetic foot ulcer, Morbid Obesity BMI >50, Atrial Fibrillation, Benign Paroxysmal Vertigo, Essential HTN, Hyperlipedemia, Lumbar and Cervical radiculopathy, Fatty Liver, Chronic pain, Hysterectomy, Tonsillectomy, Cervical neck fusion, Stent for left arm blood circulation, General weakness/debility Family Medical History Other Conditions/Hx Physical Exam Vital Signs - First Documented 08/02/23 12:54 Temp 36.2 Pulse 91 Resp 18 B/P (MAP) 134/73 (93) Pulse Ox 95 O2 Delivery Room Air Capillary Refill : Height: '" Weight: lbs. oz. kg; 54.59 BMI Method: General Appearance: obese (morbid ) Respiratory: lungs clear, normal breath sounds Cardiovascular: normal peripheral pulses, regular rate, rhythm Gastrointestinal: non tender, soft Neurologic/Psychiatric: alert, normal mood/affect Progress/Results/Core Measures Suspected Sepsis SIRS Temperature: Pulse: Respiratory Rate: Blood Pressure / Mean: Results/Orders Lab Results Laboratory Tests Test 08/02/23 13:02 Range/Units Group A Streptococcus Screen Not Detected NotDetected My Orders Orders - GIULIA PALOMINO DO Rapid Strep A Screen (08/02/23 12:59) Chest 1 View Ap/Pa Only (08/02/23 12:59) Ketorolac Injection (Ketorolac Injection (08/02/23 13:01) Vital Signs/I&O 08/02/23 08/02/23 12:54 13:25 Temp 36.2 36.2 Pulse 91 91 Resp 18 18 B/P (MAP) 134/73 (93) 134/73 Pulse Ox 95 95 O2 Delivery Room Air Room Air Capillary Refill : Progress Note : Progress Note Patient is negative for strep. Patient's x-ray shows potential questionable right lower lobe haziness. Due to her symptoms and questionable pneumonia I will start her on azithromycin and give her Tessalon Perles. Patient does have reported "erythromycin base" allergy however chart review shows she has had vancomycin in the past without problems. Based on her extensive allergy list was the reason for the choice of azithromycin. She should follow-up with her primary care provider about a week. She is stable and discharged home. Departure Impression Primary Impression: Right lower lobe pneumonia Qualified Codes: J18.9 - Pneumonia, unspecified organism Disposition: 01 HOME, SELF-CARE Condition: Stable Departure-Patient Inst. Referrals: CHAD LIANG MD (PCP) Primary Care Physician Patient Instructions: Pneumonia, Adult ED Add. Discharge Instructions: Follow-up with your primary care provider in 5 to 7 days for recheck of your symptoms All discharge instructions reviewed with patient and/or family. Voiced understanding. Scripts Benzonatate (TESSALON PERLES) 100 Mg Capsule 100 MG PO Q6H PRN for COUGH, #14 CAP Prov: GIULIA PALOMINO DO 08/02/23 Azithromycin (Azithromycin) 250 Mg Tablet 250 MG PO UD, #6 TAB TAKE 2 TABLETS ON DAY ONE THEN TAKE 1 TABLET DAILY FOR FOUR MORE DAYS Prov: GIULIA PALOMINO DO 08/02/23 GIULIA PALOMINO DO Aug 02, 2023 12:59
[2023-08-02] MEDS ORDERED: KETOROLAC INJ 30 MG/ML VIAL IM STA (13:01)
[2023-08-02 13:25] VITALS: BP 134/73
[2023-08-02] MEDS ORDERED: BENZ100C18 PO (13:32)
[2023-08-02] MEDS ORDERED: AZIT250T12 PO (13:32)
--- NOTE | 2023-08-02 13:33 | Diagnostic Imaging Report ---
Indication: Cough. Time of Exam: 12:57 PM Correlation is made with prior chest 02/24/2023. Heart is enlarged but stable. Lungs appear to be fairly clear. No significant infiltrate or effusion is seen. There may be some mild central congestion. There is no pneumothorax. Impression: Cardiomegaly and central congestion. Dictated by: Dictated on workstation # [id number]
== END 2023-08-02 13:33 | disposition home or self-care (01) ==
LOC: EDUNIT# 12:51 → ER FS 12:53
DX: J18.1 Lobar pneumonia, unspecified organism (principal); E66.01 Morbid (severe) obesity due to excess calories; Z68.43 Body mass index [BMI] 50.0-59.9, adult
CPT/HCPCS: 71045; 87430